=== PATIENT | male | born 1940 | race Caucasian/White ===

== ENCOUNTER 2020-03-04 21:02 | Inpatient (IN) ==
[2020-03-04 22:31] LABS: Basophils % 0.3 %; Hematocrit 42.7 % (37.5-50.1); Hemoglobin 14.3 g/dL (12.9-16.9); Immature Granulocytes % 0.3 % (0-4); Lymphocytes # 0.6 K/mcL (0.6-4.6); Lymphocytes % 15.9 %; Mean Corpuscular HGB Conc 33.5 g/dL (31.6-35.5); Mean Corpuscular Hemoglobin 30.4 pg (28.0-33.3); Mean Corpuscular Volume 90.9 fL (83.0-100.0); Mean Platelet Volume 9.3 fL (9.4-12.4); Monocytes # 0.2 K/mcL (0.0-1.3); Monocytes % 5.8 %; Neutrophils # 2.7 K/mcL (1.6-8.9); Platelet Count 129 K/mcL (140-400); Red Cell Distribution Width 13.3 % (11.5-14.5); Segmented Neutrophils % 77.7 %; White Blood Count 3.5 K/mcL (4.3-11.1)
[2020-03-04 22:40] LABS: Activated Partial Thrombo Time 35.4 Seconds (26.0-36.0)
[2020-03-04 22:41] LABS: INR 1.2; Prothrombin Time 13.1 Seconds (9.4-12.1)
[2020-03-04 22:53] LABS: Albumin/Globulin Ratio 1.5 (1.1-2.2); Bilirubin,Direct 0.2 mg/dL (0.0-0.2); Bilirubin,Indirect 0.5 mg/dL (0.0-1.0); Bilirubin,Total 0.7 mg/dL (0.3-1.0); Calcium 8.5 mg/dL (8.6-10.3); Globulin 2.6 g/dL (2.4-3.5); Magnesium 1.6 mg/dL (1.6-2.6); Phosphorous 2.3 mg/dL (2.7-4.5); Potassium 4.2 mEq/L (3.5-5.1); Total Protein 6.6 g/dL (6.4-8.9)
[2020-03-04 22:54] LABS: Troponin I 0.03 ng/mL (< 0.04)
[2020-03-04] MEDS ORDERED: Dexamethasone 4 MG/ML VIAL IVP ONE (22:59)
[2020-03-05] MEDS ORDERED: Naloxone 0.4 MG/ML INJ IVP PRN (00:04)
[2020-03-05] MEDS: Azithromycin 500 MG in 0.9 % Sodium Chloride 250 ML IVPB SCH (04:12)
[2020-03-05] MEDS: *HR* Enoxaparin 40 MG/0.4 ML SYRINGE SQ SCH (05:24)
[2020-03-05] MEDS ORDERED: Ipratropium 1 PUFF INHALER IH PRN (08:04)
[2020-03-05] MEDS: lisinopriL 5 MG TABLET PO SCH (08:28)
[2020-03-05] MEDS: Loratadine 10 MG TABLET PO SCH (08:28)
[2020-03-05] MEDS: cefTRIAXone 1,000 MG in Water for inj. (sterile) 10 ML IVP SCH (08:28)
[2020-03-05] MEDS: Multivit/Ca/Min/Fe/FA 1 TAB TABLET PO SCH (08:28)
[2020-03-05] MEDS: Aspirin 81 MG TAB.CHEW PO SCH (08:28)
[2020-03-05 09:14] LABS: Basophils % 0.5 %; Hemoglobin 14.7 g/dL (12.9-16.9); Immature Granulocytes % 0.5 % (0-4); Lymphocytes # 0.8 K/mcL (0.6-4.6); Lymphocytes % 34.4 %; Mean Corpuscular HGB Conc 34.2 g/dL (31.6-35.5); Mean Corpuscular Hemoglobin 30.9 pg (28.0-33.3); Mean Corpuscular Volume 90.3 fL (83.0-100.0); Mean Platelet Volume 9.1 fL (9.4-12.4); Monocytes # 0.1 K/mcL (0.0-1.3); Monocytes % 4.1 %; Neutrophils # 1.3 K/mcL (1.6-8.9); Platelet Count 125 K/mcL (140-400); Red Blood Count 4.76 M/mcL (4.19-5.50); Red Cell Distribution Width 13.3 % (11.5-14.5); Segmented Neutrophils % 60.5 %; White Blood Count 2.2 K/mcL (4.3-11.1)
[2020-03-05 09:15] LABS: INR 1.2; Prothrombin Time 13.2 Seconds (9.4-12.1)
[2020-03-05 09:33] LABS: Alanine Aminotransferase 16 Units/L (7-52); Albumin 3.8 g/dL (3.5-5.7); Albumin/Globulin Ratio 1.5 (1.1-2.2); Alkaline Phosphatase 72 Units/L (34-104); Aspartate Amino Transferase 30 Units/L (13-39); BUN/Creatinine Ratio 17 (6-26); Bilirubin,Total 0.6 mg/dL (0.3-1.0); Blood Urea Nitrogen 23 mg/dL (8-23); C-Reactive Protein 85 mg/L (Less than 10); Calcium 8.2 mg/dL (8.6-10.3); Carbon Dioxide 20 mEq/L (23-29); Chloride 100 mEq/L (98-107); Globulin 2.5 g/dL (2.4-3.5); Glucose 118 mg/dL (70-105); Lactate Dehydrogenase 224 Units/L (140-271); Magnesium 1.6 mg/dL (1.6-2.6); Osmolality,Calculated 283 (280-300); Phosphorous 4.4 mg/dL (2.7-4.5); Potassium 3.6 mEq/L (3.5-5.1); Sodium 134 mEq/L (136-145); Total Protein 6.3 g/dL (6.4-8.9); eGFR For African Americans > 60 (> 60); eGFR For Non-African Americans 51 (> 60)
[2020-03-05 13:11] LABS: ABG Base Excess -3 mEq/L (-2 to 3); ABG HCO3 20 mEq/L (21-27); ABG Oxygen Saturation 96 % (95-98); ABG PCO2 29 mmHg (35-45); ABG PH 7.44 pH Units (7.32-7.45); ABG PO2 75 mmHg (85-104); ABG TCO2 21 mEq/L (20-26)
[2020-03-05] MEDS ORDERED: allopurinoL 100 MG TABLET PO SCH (14:39)
[2020-03-05] MEDS ORDERED: Primidone 50 MG TABLET PO SCH (14:39)
[2020-03-05] MEDS: allopurinoL 100 MG TABLET PO SCH (20:22)
[2020-03-05] MEDS: Primidone 50 MG TABLET PO SCH (20:22)
[2020-03-06] MEDS: Azithromycin 500 MG in 0.9 % Sodium Chloride 250 ML IVPB SCH (04:35)
[2020-03-06] MEDS: *HR* Enoxaparin 40 MG/0.4 ML SYRINGE SQ SCH (04:35)
[2020-03-06 05:54] LABS: Hemoglobin 13.9 g/dL (12.9-16.9); Mean Corpuscular Volume 91.6 fL (83.0-100.0)
[2020-03-06 05:55] LABS: Hematocrit 41.5 % (37.5-50.1); Immature Platelets 2.2 % (1.1-6.1); Mean Corpuscular HGB Conc 33.5 g/dL (31.6-35.5); Mean Corpuscular Hemoglobin 30.7 pg (28.0-33.3); Mean Platelet Volume 9.2 fL (9.4-12.4); Red Blood Count 4.53 M/mcL (4.19-5.50); Red Cell Distribution Width 13.4 % (11.5-14.5); White Blood Count 4.6 K/mcL (4.3-11.1)
[2020-03-06 06:17] LABS: BUN/Creatinine Ratio 22 (6-26); Blood Urea Nitrogen 30 mg/dL (8-23); Calcium 8.3 mg/dL (8.6-10.3); Carbon Dioxide 23 mEq/L (23-29); Chloride 101 mEq/L (98-107); Glucose 99 mg/dL (70-105); Magnesium 1.6 mg/dL (1.6-2.6); Osmolality,Calculated 284 (280-300); Phosphorous 2.9 mg/dL (2.7-4.5); Potassium 3.7 mEq/L (3.5-5.1); Sodium 134 mEq/L (136-145); eGFR For African Americans > 60 (> 60); eGFR For Non-African Americans 51 (> 60)
[2020-03-06] MEDS: allopurinoL 100 MG TABLET PO SCH (07:51)
[2020-03-06] MEDS: Loratadine 10 MG TABLET PO SCH (07:51)
[2020-03-06] MEDS: Multivit/Ca/Min/Fe/FA 1 TAB TABLET PO SCH (07:51)
[2020-03-06] MEDS: Aspirin 81 MG TAB.CHEW PO SCH (07:51)
[2020-03-06] MEDS: lisinopriL 5 MG TABLET PO SCH (07:51)
[2020-03-06] MEDS: Primidone 50 MG TABLET PO SCH (07:51)
[2020-03-06] MEDS: cefTRIAXone 1,000 MG in Water for inj. (sterile) 10 ML IVP SCH (07:51)
[2020-03-06] MEDS ORDERED: Ibuprofen 600 MG TABLET PO PRN (14:05)
[2020-03-06] MEDS: Ondansetron 4 MG/2 ML VIAL IVP PRN (14:16)
[2020-03-07] MEDS: Azithromycin 500 MG in 0.9 % Sodium Chloride 250 ML IVPB SCH (03:35)
[2020-03-07 04:30] LABS: Hematocrit 44.3 % (37.5-50.1); Mean Corpuscular HGB Conc 33.9 g/dL (31.6-35.5); Mean Corpuscular Hemoglobin 30.6 pg (28.0-33.3); Mean Corpuscular Volume 90.4 fL (83.0-100.0); Mean Platelet Volume 8.8 fL (9.4-12.4); Platelet Count 139 K/mcL (140-400); Red Cell Distribution Width 13.5 % (11.5-14.5); White Blood Count 3.1 K/mcL (4.3-11.1)
[2020-03-07 04:52] LABS: BUN/Creatinine Ratio 18 (6-26); Blood Urea Nitrogen 24 mg/dL (8-23); C-Reactive Protein 107 mg/L (Less than 10); Calcium 7.8 mg/dL (8.6-10.3); Carbon Dioxide 24 mEq/L (23-29); Chloride 100 mEq/L (98-107); Glucose 90 mg/dL (70-105); Lactate Dehydrogenase 296 Units/L (140-271); Magnesium 1.8 mg/dL (1.6-2.6); Osmolality,Calculated 282 (280-300); Phosphorous 2.6 mg/dL (2.7-4.5); Potassium 3.8 mEq/L (3.5-5.1); Sodium 134 mEq/L (136-145); eGFR For African Americans > 60 (> 60); eGFR For Non-African Americans 54 (> 60)
[2020-03-07 05:10] LABS: Ferritin 771 ng/mL (20-250)
[2020-03-07] MEDS: *HR* Enoxaparin 40 MG/0.4 ML SYRINGE SQ SCH (05:45)
[2020-03-07] MEDS: Aspirin 81 MG TAB.CHEW PO SCH (08:49)
[2020-03-07] MEDS: allopurinoL 100 MG TABLET PO SCH (08:49)
[2020-03-07] MEDS: Loratadine 10 MG TABLET PO SCH (08:49)
[2020-03-07] MEDS: Multivit/Ca/Min/Fe/FA 1 TAB TABLET PO SCH (08:49)
[2020-03-07] MEDS: lisinopriL 5 MG TABLET PO SCH (08:50)
[2020-03-07] MEDS: Primidone 50 MG TABLET PO SCH (08:50)
[2020-03-07] MEDS: cefTRIAXone 1,000 MG in Water for inj. (sterile) 10 ML IVP SCH (08:52)
[2020-03-07] MEDS: Acetaminophen 325 MG TABLET PO PRN ×2 (12:41→19:58)
[2020-03-07 23:17] LABS: Adenovirus Not Detected (Not Detect); Coronavirus 229E Not Detected (Not Detect); Coronavirus HKU1 Not Detected (Not Detect); Coronavirus NL63 Not Detected (Not Detect)
[2020-03-07 23:18] LABS: Coronavirus OC43 Not Detected (Not Detect)
[2020-03-07 23:19] LABS: Bordetella Pertussis Not Detected (Not Detect); Chlamydophila pneumoniae Not Detected (Not Detect); Human Metapneumovirus Not Detected (Not Detect); Human Rhinovirus/Enterovirus Not Detected (Not Detect); Influenza A Subtype 2009 H1 Not Detected (Not Detect); Influenza B Not Detected (Not Detect); Mycoplasma pneumoniae Not Detected (Not Detect); Parainfluenza Virus 1 Not Detected (Not Detect); Parainfluenza Virus 2 Not Detected (Not Detect); Parainfluenza Virus 3 Not Detected (Not Detect); Parainfluenza Virus 4 Not Detected (Not Detect); Respiratory Syncytial Virus Not Detected (Not Detect); SARS-CoV-2 DETECTED (Not Detect)
[2020-03-08 05:50] LABS: Hematocrit 42.9 % (37.5-50.1); Hemoglobin 14.5 g/dL (12.9-16.9); Mean Corpuscular HGB Conc 33.8 g/dL (31.6-35.5); Mean Corpuscular Hemoglobin 30.9 pg (28.0-33.3); Mean Corpuscular Volume 91.5 fL (83.0-100.0); Mean Platelet Volume 9.2 fL (9.4-12.4); Platelet Count 149 K/mcL (140-400); Red Blood Count 4.69 M/mcL (4.19-5.50); Red Cell Distribution Width 13.7 % (11.5-14.5); White Blood Count 3.7 K/mcL (4.3-11.1)
[2020-03-08 06:11] LABS: BUN/Creatinine Ratio 20 (6-26); Blood Urea Nitrogen 27 mg/dL (8-23); Calcium 7.9 mg/dL (8.6-10.3); Carbon Dioxide 23 mEq/L (23-29); Chloride 99 mEq/L (98-107); Glucose 92 mg/dL (70-105); Magnesium 1.8 mg/dL (1.6-2.6); Osmolality,Calculated 277 (280-300); Phosphorous 2.9 mg/dL (2.7-4.5); Potassium 3.6 mEq/L (3.5-5.1); Sodium 131 mEq/L (136-145); eGFR For African Americans > 60 (> 60); eGFR For Non-African Americans 50 (> 60)
[2020-03-08] MEDS: *HR* Enoxaparin 40 MG/0.4 ML SYRINGE SQ SCH (06:37)
[2020-03-08] MEDS: Primidone 50 MG TABLET PO SCH (07:54)
[2020-03-08] MEDS: Loratadine 10 MG TABLET PO SCH (07:54)
[2020-03-08] MEDS: Multivit/Ca/Min/Fe/FA 1 TAB TABLET PO SCH (07:54)
[2020-03-08] MEDS: Aspirin 81 MG TAB.CHEW PO SCH (07:54)
[2020-03-08] MEDS: cefTRIAXone 1,000 MG in Water for inj. (sterile) 10 ML IVP SCH (07:54)
[2020-03-08] MEDS: allopurinoL 100 MG TABLET PO SCH (07:55)
[2020-03-08] MEDS: lisinopriL 5 MG TABLET PO SCH (07:55)
[2020-03-08] MEDS: Ondansetron 4 MG/2 ML VIAL IVP PRN (08:17)
[2020-03-08] MEDS: Acetaminophen 325 MG TABLET PO PRN (08:17)
[2020-03-08] MEDS ORDERED: Azithromycin 250 MG TABLET PO SCH (09:00)
[2020-03-08] MEDS ORDERED: Dexamethasone 4 MG/ML VIAL IVP SCH (11:27)
[2020-03-08] MEDS ORDERED: Dexamethasone 4 MG/ML VIAL IVP ONE (12:30)
[2020-03-08] MEDS ORDERED: 0.9 % Sodium Chloride 250 ML ONE (15:34)
[2020-03-09] MEDS: *HR* Enoxaparin 40 MG/0.4 ML SYRINGE SQ SCH (05:47)
[2020-03-09] MEDS: cefTRIAXone 1,000 MG in Water for inj. (sterile) 10 ML IVP SCH (07:40)
[2020-03-09] MEDS: Multivit/Ca/Min/Fe/FA 1 TAB TABLET PO SCH (07:40)
[2020-03-09] MEDS: Azithromycin 250 MG TABLET PO SCH (07:40)
[2020-03-09] MEDS: Primidone 50 MG TABLET PO SCH (07:40)
[2020-03-09] MEDS: Loratadine 10 MG TABLET PO SCH (07:40)
[2020-03-09] MEDS: Dexamethasone 4 MG/ML VIAL IVP SCH (07:41)
[2020-03-09] MEDS: Aspirin 81 MG TAB.CHEW PO SCH (07:42)
[2020-03-09] MEDS: allopurinoL 100 MG TABLET PO SCH (07:42)
[2020-03-09 08:07] LABS: Hematocrit 41.3 % (37.5-50.1); Hemoglobin 14.3 g/dL (12.9-16.9); Mean Corpuscular HGB Conc 34.6 g/dL (31.6-35.5); Mean Corpuscular Hemoglobin 31.3 pg (28.0-33.3); Mean Corpuscular Volume 90.4 fL (83.0-100.0); Mean Platelet Volume 9.2 fL (9.4-12.4); Platelet Count 196 K/mcL (140-400); Red Blood Count 4.57 M/mcL (4.19-5.50); Red Cell Distribution Width 13.5 % (11.5-14.5); White Blood Count 5.6 K/mcL (4.3-11.1)
[2020-03-09 08:26] LABS: BUN/Creatinine Ratio 24 (6-26); Blood Urea Nitrogen 32 mg/dL (8-23); C-Reactive Protein 145 mg/L (Less than 10); Calcium 8.1 mg/dL (8.6-10.3); Carbon Dioxide 20 mEq/L (23-29); Chloride 100 mEq/L (98-107); Glucose 106 mg/dL (70-105); Lactate Dehydrogenase 375 Units/L (140-271); Magnesium 1.9 mg/dL (1.6-2.6); Osmolality,Calculated 283 (280-300); Potassium 4.1 mEq/L (3.5-5.1); Sodium 133 mEq/L (136-145); eGFR For African Americans > 60 (> 60); eGFR For Non-African Americans 52 (> 60)
[2020-03-09 08:43] LABS: Ferritin 1100 ng/mL (20-250)
[2020-03-09] MEDS ORDERED: 0.9 % Sodium Chloride 250 ML ONE (14:20)
[2020-03-09] MEDS: polyethylene glycoL 3350 17 GM POWD.PACK PO PRN (23:58)
[2020-03-10] MEDS: *HR* Enoxaparin 40 MG/0.4 ML SYRINGE SQ SCH (04:44)
[2020-03-10 06:24] LABS: Basophils % 0.1 %; Hematocrit 41.5 % (37.5-50.1); Hemoglobin 13.9 g/dL (12.9-16.9); Immature Granulocytes % 0.7 % (0-4); Lymphocytes # 0.8 K/mcL (0.6-4.6); Lymphocytes % 8.4 %; Mean Corpuscular HGB Conc 33.5 g/dL (31.6-35.5); Mean Corpuscular Hemoglobin 30.3 pg (28.0-33.3); Mean Corpuscular Volume 90.6 fL (83.0-100.0); Mean Platelet Volume 9.1 fL (9.4-12.4); Monocytes # 0.4 K/mcL (0.0-1.3); Monocytes % 4.2 %; Neutrophils # 7.8 K/mcL (1.6-8.9); Platelet Count 255 K/mcL (140-400); Red Blood Count 4.58 M/mcL (4.19-5.50); Red Cell Distribution Width 13.7 % (11.5-14.5); Segmented Neutrophils % 86.6 %
[2020-03-10 06:43] LABS: BUN/Creatinine Ratio 29 (6-26); Blood Urea Nitrogen 36 mg/dL (8-23); Calcium 8.5 mg/dL (8.6-10.3); Carbon Dioxide 24 mEq/L (23-29); Chloride 101 mEq/L (98-107); Glucose 108 mg/dL (70-105); Osmolality,Calculated 289 (280-300); Potassium 4.2 mEq/L (3.5-5.1); Sodium 135 mEq/L (136-145); eGFR For African Americans > 60 (> 60); eGFR For Non-African Americans 57 (> 60)
[2020-03-10] MEDS: Loratadine 10 MG TABLET PO SCH (07:47)
[2020-03-10] MEDS: Dexamethasone 4 MG/ML VIAL IVP SCH (07:47)
[2020-03-10] MEDS: Azithromycin 250 MG TABLET PO SCH (07:47)
[2020-03-10] MEDS: allopurinoL 100 MG TABLET PO SCH (07:47)
[2020-03-10] MEDS: cefTRIAXone 1,000 MG in Water for inj. (sterile) 10 ML IVP SCH (07:47)
[2020-03-10] MEDS: Primidone 50 MG TABLET PO SCH (07:48)
[2020-03-10] MEDS: Aspirin 81 MG TAB.CHEW PO SCH (07:48)
[2020-03-10] MEDS: Multivit/Ca/Min/Fe/FA 1 TAB TABLET PO SCH (07:48)
[2020-03-10 10:27] LABS: Alanine Aminotransferase 56 Units/L (7-52); Albumin 3.3 g/dL (3.5-5.7); Albumin/Globulin Ratio 1.3 (1.1-2.2); Alkaline Phosphatase 73 Units/L (34-104); Aspartate Amino Transferase 74 Units/L (13-39); Bilirubin,Direct 0.2 mg/dL (0.0-0.2); Bilirubin,Indirect 0.4 mg/dL (0.0-1.0); Bilirubin,Total 0.6 mg/dL (0.3-1.0); Globulin 2.6 g/dL (2.4-3.5); Total Protein 5.9 g/dL (6.4-8.9)
[2020-03-10] MEDS ORDERED: 0.9 % Sodium Chloride 250 ML ONE (11:20)
[2020-03-10] MEDS ORDERED: Furosemide 20 MG/2 ML VIAL IVP ONE (13:44)
[2020-03-10] MEDS ORDERED: Remdesivir 200 MG in 0.9 % Sodium Chloride 210 ML IVPB ONE (17:00)
[2020-03-11 04:57] LABS: Basophils % 0.3 %; Eosinophils % 0.1 %; Hemoglobin 13.3 g/dL (12.9-16.9); Immature Granulocytes % 0.6 % (0-4); Lymphocytes % 10.5 %; Mean Corpuscular HGB Conc 33.3 g/dL (31.6-35.5); Mean Corpuscular Hemoglobin 29.9 pg (28.0-33.3); Mean Corpuscular Volume 89.9 fL (83.0-100.0); Monocytes # 0.4 K/mcL (0.0-1.3); Monocytes % 4.1 %; Platelet Count 269 K/mcL (140-400); Red Blood Count 4.45 M/mcL (4.19-5.50); Red Cell Distribution Width 13.5 % (11.5-14.5); Segmented Neutrophils % 84.4 %; White Blood Count 9.3 K/mcL (4.3-11.1)
[2020-03-11 05:04] LABS: Neutrophils # 7.9 K/mcL (1.6-8.9)
[2020-03-11 05:05] LABS: INR 1.1; Prothrombin Time 12.8 Seconds (9.4-12.1)
[2020-03-11 05:23] LABS: Alanine Aminotransferase 56 Units/L (7-52); Albumin 3.2 g/dL (3.5-5.7); Albumin/Globulin Ratio 1.2 (1.1-2.2); Alkaline Phosphatase 86 Units/L (34-104); Aspartate Amino Transferase 58 Units/L (13-39); BUN/Creatinine Ratio 35 (6-26); Bilirubin,Total 0.6 mg/dL (0.3-1.0); Blood Urea Nitrogen 39 mg/dL (8-23); C-Reactive Protein 59 mg/L (Less than 10); Calcium 8.1 mg/dL (8.6-10.3); Carbon Dioxide 19 mEq/L (23-29); Chloride 104 mEq/L (98-107); Globulin 2.6 g/dL (2.4-3.5); Glucose 95 mg/dL (70-105); Lactate Dehydrogenase 416 Units/L (140-271); Osmolality,Calculated 291 (280-300); Potassium 3.9 mEq/L (3.5-5.1); Sodium 136 mEq/L (136-145); Total Protein 5.8 g/dL (6.4-8.9); eGFR For African Americans > 60 (> 60); eGFR For Non-African Americans > 60 (> 60)
[2020-03-11 05:36] LABS: Ferritin 958 ng/mL (20-250)
[2020-03-11 05:44] LABS: Platelet Estimate Normal (Normal)
[2020-03-11] MEDS: *HR* Enoxaparin 40 MG/0.4 ML SYRINGE SQ SCH (06:03)
[2020-03-11] MEDS ORDERED: Furosemide 40 MG/4 ML VIAL IVP ONE (07:27)
[2020-03-11] MEDS: cefTRIAXone 1,000 MG in Water for inj. (sterile) 10 ML IVP SCH (08:37)
[2020-03-11] MEDS: Dexamethasone 4 MG/ML VIAL IVP SCH (08:37)
[2020-03-11] MEDS: Azithromycin 250 MG TABLET PO SCH (08:38)
[2020-03-11] MEDS: Multivit/Ca/Min/Fe/FA 1 TAB TABLET PO SCH (08:38)
[2020-03-11] MEDS: Aspirin 81 MG TAB.CHEW PO SCH (08:38)
[2020-03-11] MEDS: allopurinoL 100 MG TABLET PO SCH (08:38)
[2020-03-11] MEDS: Primidone 50 MG TABLET PO SCH (08:38)
[2020-03-11] MEDS: Loratadine 10 MG TABLET PO SCH (08:38)
[2020-03-11] MEDS: Acetaminophen 325 MG TABLET PO PRN ×2 (11:37→21:23)
[2020-03-11] MEDS: Remdesivir 100 MG in 0.9 % Sodium Chloride 230 ML IVPB SCH (17:14)
[2020-03-11] MEDS: *HR* Enoxaparin 100 MG/ML SYRINGE SQ SCH (17:15)
[2020-03-12] MEDS: *HR* Enoxaparin 100 MG/ML SYRINGE SQ SCH ×2 (05:22→17:41)
[2020-03-12 06:10] LABS: Hematocrit 43.5 % (37.5-50.1); Hemoglobin 14.8 g/dL (12.9-16.9); Mean Corpuscular Hemoglobin 31.4 pg (28.0-33.3); Mean Corpuscular Volume 92.2 fL (83.0-100.0); Mean Platelet Volume 9.2 fL (9.4-12.4); Platelet Count 270 K/mcL (140-400); Red Blood Count 4.72 M/mcL (4.19-5.50); Red Cell Distribution Width 13.5 % (11.5-14.5); White Blood Count 10.5 K/mcL (4.3-11.1)
[2020-03-12 06:20] LABS: INR 1.2; Prothrombin Time 14.1 Seconds (9.4-12.1)
[2020-03-12 06:31] LABS: Alanine Aminotransferase 53 Units/L (7-52); Albumin 3.4 g/dL (3.5-5.7); Albumin/Globulin Ratio 1.3 (1.1-2.2); Alkaline Phosphatase 133 Units/L (34-104); Aspartate Amino Transferase 49 Units/L (13-39); BUN/Creatinine Ratio 33 (6-26); Bilirubin,Total 0.6 mg/dL (0.3-1.0); Blood Urea Nitrogen 41 mg/dL (8-23); Calcium 8.4 mg/dL (8.6-10.3); Carbon Dioxide 22 mEq/L (23-29); Chloride 103 mEq/L (98-107); Globulin 2.7 g/dL (2.4-3.5); Glucose 82 mg/dL (70-105); Osmolality,Calculated 291 (280-300); Potassium 3.9 mEq/L (3.5-5.1); Sodium 136 mEq/L (136-145); Total Protein 6.1 g/dL (6.4-8.9); eGFR For African Americans > 60 (> 60); eGFR For Non-African Americans 56 (> 60)
[2020-03-12] MEDS: Multivit/Ca/Min/Fe/FA 1 TAB TABLET PO SCH (08:47)
[2020-03-12] MEDS: Loratadine 10 MG TABLET PO SCH (08:47)
[2020-03-12] MEDS: Aspirin 81 MG TAB.CHEW PO SCH (08:47)
[2020-03-12] MEDS: Primidone 50 MG TABLET PO SCH (08:47)
[2020-03-12] MEDS: Dexamethasone 4 MG/ML VIAL IVP SCH (08:48)
[2020-03-12] MEDS: allopurinoL 100 MG TABLET PO SCH (08:48)
[2020-03-12] MEDS: Furosemide 20 MG/2 ML VIAL IVP SCH (08:48)
[2020-03-12] MEDS: Acetaminophen 325 MG TABLET PO PRN ×2 (14:35→20:55)
[2020-03-12] MEDS: Remdesivir 100 MG in 0.9 % Sodium Chloride 230 ML IVPB SCH (16:58)
[2020-03-12] MEDS: polyethylene glycoL 3350 17 GM POWD.PACK PO PRN (20:55)
[2020-03-13 02:36] LABS: Basophils % 0.3 %; Eosinophils % 0.3 %; Hematocrit 46.3 % (37.5-50.1); Hemoglobin 15.7 g/dL (12.9-16.9); Immature Granulocytes % 1.1 % (0-4); Lymphocytes # 0.9 K/mcL (0.6-4.6); Lymphocytes % 7.8 %; Mean Corpuscular HGB Conc 33.9 g/dL (31.6-35.5); Mean Corpuscular Hemoglobin 31.3 pg (28.0-33.3); Mean Corpuscular Volume 92.2 fL (83.0-100.0); Mean Platelet Volume 8.8 fL (9.4-12.4); Monocytes # 0.2 K/mcL (0.0-1.3); Monocytes % 1.6 %; Neutrophils # 9.8 K/mcL (1.6-8.9); Platelet Count 337 K/mcL (140-400); Red Blood Count 5.02 M/mcL (4.19-5.50); Red Cell Distribution Width 13.8 % (11.5-14.5); Segmented Neutrophils % 88.9 %
[2020-03-13 02:40] LABS: INR 1.4; Prothrombin Time 16.5 Seconds (9.4-12.1)
[2020-03-13 02:55] LABS: Alanine Aminotransferase 43 Units/L (7-52); Albumin 3.3 g/dL (3.5-5.7); Albumin/Globulin Ratio 1.1 (1.1-2.2); Alkaline Phosphatase 136 Units/L (34-104); Aspartate Amino Transferase 34 Units/L (13-39); BUN/Creatinine Ratio 32 (6-26); Bilirubin,Total 0.9 mg/dL (0.3-1.0); Blood Urea Nitrogen 39 mg/dL (8-23); Calcium 8.4 mg/dL (8.6-10.3); Carbon Dioxide 23 mEq/L (23-29); Chloride 102 mEq/L (98-107); Glucose 89 mg/dL (70-105); Osmolality,Calculated 291 (280-300); Potassium 3.9 mEq/L (3.5-5.1); Sodium 136 mEq/L (136-145); Total Protein 6.3 g/dL (6.4-8.9); eGFR For African Americans > 60 (> 60); eGFR For Non-African Americans 58 (> 60)
[2020-03-13 02:56] LABS: C-Reactive Protein 228 mg/L (Less than 10); Lactate Dehydrogenase 506 Units/L (140-271)
[2020-03-13 03:15] LABS: Ferritin 854 ng/mL (20-250)
[2020-03-13] MEDS: *HR* Enoxaparin 100 MG/ML SYRINGE SQ SCH ×2 (05:35→17:00)
[2020-03-13] MEDS: Dexamethasone 4 MG/ML VIAL IVP SCH (07:41)
[2020-03-13] MEDS: Aspirin 81 MG TAB.CHEW PO SCH (07:42)
[2020-03-13] MEDS: Furosemide 20 MG/2 ML VIAL IVP SCH ×3 (07:42→20:42)
[2020-03-13] MEDS: Multivit/Ca/Min/Fe/FA 1 TAB TABLET PO SCH (07:42)
[2020-03-13] MEDS: Primidone 50 MG TABLET PO SCH (07:42)
[2020-03-13] MEDS: Loratadine 10 MG TABLET PO SCH (07:42)
[2020-03-13] MEDS: allopurinoL 100 MG TABLET PO SCH (07:42)
[2020-03-13] MEDS: Acetaminophen 325 MG TABLET PO PRN ×2 (08:30→20:44)
[2020-03-13] MEDS: levoFLOXacin 500 MG TABLET PO SCH (10:21)
[2020-03-13] MEDS: Famotidine 20 MG TABLET PO SCH ×2 (10:21→20:42)
[2020-03-13] MEDS: Remdesivir 100 MG in 0.9 % Sodium Chloride 230 ML IVPB SCH (17:00)
[2020-03-13] MEDS ORDERED: MOM Conc 10 ML UD.LIQ PO ONE (21:04)
[2020-03-14 05:39] LABS: Basophils # 0.1 K/mcL (0.0-0.2); Basophils % 0.3 %; Eosinophils # 0.1 K/mcL (0.0-0.6); Eosinophils % 0.5 %; Hematocrit 49.6 % (37.5-50.1); Hemoglobin 16.5 g/dL (12.9-16.9); Immature Granulocytes % 0.9 % (0-4); Lymphocytes # 1.1 K/mcL (0.6-4.6); Lymphocytes % 6.2 %; Mean Corpuscular HGB Conc 33.3 g/dL (31.6-35.5); Mean Corpuscular Hemoglobin 31.1 pg (28.0-33.3); Mean Corpuscular Volume 93.4 fL (83.0-100.0); Mean Platelet Volume 9.1 fL (9.4-12.4); Monocytes # 0.3 K/mcL (0.0-1.3); Monocytes % 1.7 %; Platelet Count 405 K/mcL (140-400); Red Blood Count 5.31 M/mcL (4.19-5.50); Red Cell Distribution Width 14.1 % (11.5-14.5); Segmented Neutrophils % 90.4 %
[2020-03-14 05:40] LABS: Neutrophils # 15.6 K/mcL (1.6-8.9); White Blood Count 17.2 K/mcL (4.3-11.1)
[2020-03-14 05:46] LABS: INR 1.6; Prothrombin Time 17.8 Seconds (9.4-12.1)
[2020-03-14 06:07] LABS: Alanine Aminotransferase 35 Units/L (7-52); Albumin 3.7 g/dL (3.5-5.7); Albumin/Globulin Ratio 1.1 (1.1-2.2); Alkaline Phosphatase 175 Units/L (34-104); Aspartate Amino Transferase 46 Units/L (13-39); BUN/Creatinine Ratio 29 (6-26); Bilirubin,Total 0.9 mg/dL (0.3-1.0); Blood Urea Nitrogen 38 mg/dL (8-23); Calcium 8.9 mg/dL (8.6-10.3); Carbon Dioxide 20 mEq/L (23-29); Chloride 99 mEq/L (98-107); Globulin 3.3 g/dL (2.4-3.5); Glucose 80 mg/dL (70-105); Osmolality,Calculated 290 (280-300); Potassium 3.8 mEq/L (3.5-5.1); Sodium 136 mEq/L (136-145); eGFR For African Americans > 60 (> 60); eGFR For Non-African Americans 53 (> 60)
[2020-03-14] MEDS: *HR* Enoxaparin 100 MG/ML SYRINGE SQ SCH ×2 (06:15→16:59)
[2020-03-14] MEDS: levoFLOXacin 500 MG TABLET PO SCH (08:42)
[2020-03-14] MEDS: Multivit/Ca/Min/Fe/FA 1 TAB TABLET PO SCH (08:42)
[2020-03-14] MEDS: Famotidine 20 MG TABLET PO SCH (08:43)
[2020-03-14] MEDS: Loratadine 10 MG TABLET PO SCH (08:43)
[2020-03-14] MEDS: Primidone 50 MG TABLET PO SCH (08:43)
[2020-03-14] MEDS: allopurinoL 100 MG TABLET PO SCH (08:43)
[2020-03-14] MEDS: Aspirin 81 MG TAB.CHEW PO SCH (08:44)
[2020-03-14] MEDS: Dexamethasone 4 MG/ML VIAL IVP SCH (08:44)
[2020-03-14] MEDS: Furosemide 20 MG/2 ML VIAL IVP SCH ×2 (08:46→19:59)
[2020-03-14] MEDS: Acetaminophen 325 MG TABLET PO PRN (08:52)
[2020-03-14] MEDS ORDERED: Bisacodyl 10 MG RECTAL SUPPOSITORY RC ONE (12:00)
[2020-03-14] MEDS: Remdesivir 100 MG in 0.9 % Sodium Chloride 230 ML IVPB SCH (16:58)
[2020-03-15] MEDS: Acetaminophen 325 MG TABLET PO PRN ×2 (00:49→00:54)
[2020-03-15] MEDS: *HR* Enoxaparin 100 MG/ML SYRINGE SQ SCH ×2 (06:12→17:01)
[2020-03-15] MEDS: Aspirin 81 MG TAB.CHEW PO SCH (08:33)
[2020-03-15] MEDS: levoFLOXacin 750 MG TABLET PO SCH (08:33)
[2020-03-15] MEDS: Famotidine 20 MG TABLET PO SCH (08:33)
[2020-03-15] MEDS: Furosemide 20 MG/2 ML VIAL IVP SCH (08:34)
[2020-03-15] MEDS: Dexamethasone 4 MG/ML VIAL IVP SCH (08:34)
[2020-03-15] MEDS: Loratadine 10 MG TABLET PO SCH (08:34)
[2020-03-15] MEDS: Multivit/Ca/Min/Fe/FA 1 TAB TABLET PO SCH (08:34)
[2020-03-15] MEDS: polyethylene glycoL 3350 17 GM POWD.PACK PO SCH (08:35)
[2020-03-15] MEDS: allopurinoL 100 MG TABLET PO SCH (08:35)
[2020-03-15] MEDS: Primidone 50 MG TABLET PO SCH (08:35)
[2020-03-15 09:45] LABS: INR 1.5; Prothrombin Time 17.2 Seconds (9.4-12.1)
[2020-03-15 09:47] LABS: Basophils % 0.2 %; Eosinophils # 0.1 K/mcL (0.0-0.6); Eosinophils % 0.7 %; Hematocrit 46.5 % (37.5-50.1); Hemoglobin 15.9 g/dL (12.9-16.9); Immature Granulocytes % 1.1 % (0-4); Lymphocytes # 0.9 K/mcL (0.6-4.6); Lymphocytes % 6.3 %; Mean Corpuscular HGB Conc 34.2 g/dL (31.6-35.5); Mean Corpuscular Hemoglobin 31.1 pg (28.0-33.3); Mean Corpuscular Volume 90.8 fL (83.0-100.0); Mean Platelet Volume 8.9 fL (9.4-12.4); Monocytes # 0.2 K/mcL (0.0-1.3); Monocytes % 1.5 %; Neutrophils # 12.9 K/mcL (1.6-8.9); Platelet Count 426 K/mcL (140-400); Red Blood Count 5.12 M/mcL (4.19-5.50); Segmented Neutrophils % 90.2 %; White Blood Count 14.3 K/mcL (4.3-11.1)
[2020-03-15 10:18] LABS: Albumin 3.3 g/dL (3.5-5.7); Bilirubin,Total 0.8 mg/dL (0.3-1.0); Calcium 8.9 mg/dL (8.6-10.3); Globulin 3.3 g/dL (2.4-3.5); Potassium 3.8 mEq/L (3.5-5.1); Total Protein 6.6 g/dL (6.4-8.9)
[2020-03-15] MEDS ORDERED: *HR* Metoprolol 5 MG/5 ML VIAL IVP ONE (10:59)
[2020-03-16] MEDS: *HR* Enoxaparin 100 MG/ML SYRINGE SQ SCH (05:10)
[2020-03-16 07:18] LABS: Basophils % 0.2 %; Eosinophils # 0.1 K/mcL (0.0-0.6); Eosinophils % 0.4 %; Hematocrit 47.1 % (37.5-50.1); Hemoglobin 15.7 g/dL (12.9-16.9); Immature Granulocytes % 1.2 % (0-4); Lymphocytes % 7.6 %; Mean Corpuscular HGB Conc 33.3 g/dL (31.6-35.5); Mean Corpuscular Hemoglobin 31.3 pg (28.0-33.3); Mean Platelet Volume 9.3 fL (9.4-12.4); Monocytes # 0.2 K/mcL (0.0-1.3); Monocytes % 1.6 %; Neutrophils # 11.7 K/mcL (1.6-8.9); Platelet Count 416 K/mcL (140-400); Red Blood Count 5.01 M/mcL (4.19-5.50); Red Cell Distribution Width 14.2 % (11.5-14.5); White Blood Count 13.1 K/mcL (4.3-11.1)
[2020-03-16 07:23] LABS: INR 1.6
[2020-03-16 07:42] LABS: Alanine Aminotransferase 31 Units/L (7-52); Albumin 3.4 g/dL (3.5-5.7); Albumin/Globulin Ratio 1.1 (1.1-2.2); Alkaline Phosphatase 115 Units/L (34-104); Aspartate Amino Transferase 42 Units/L (13-39); BUN/Creatinine Ratio 36 (6-26); Bilirubin,Total 0.8 mg/dL (0.3-1.0); Blood Urea Nitrogen 48 mg/dL (8-23); Calcium 9.1 mg/dL (8.6-10.3); Carbon Dioxide 20 mEq/L (23-29); Chloride 100 mEq/L (98-107); Glucose 78 mg/dL (70-105); Osmolality,Calculated 287 (280-300); Potassium 4.4 mEq/L (3.5-5.1); Sodium 133 mEq/L (136-145); Total Protein 6.4 g/dL (6.4-8.9); eGFR For African Americans > 60 (> 60); eGFR For Non-African Americans 53 (> 60)
[2020-03-16] MEDS: Multivit/Ca/Min/Fe/FA 1 TAB TABLET PO SCH (09:18)
[2020-03-16] MEDS: Aspirin 81 MG TAB.CHEW PO SCH (09:19)
[2020-03-16] MEDS: Loratadine 10 MG TABLET PO SCH (09:19)
[2020-03-16] MEDS: polyethylene glycoL 3350 17 GM POWD.PACK PO SCH (09:19)
[2020-03-16] MEDS: allopurinoL 100 MG TABLET PO SCH (09:19)
[2020-03-16] MEDS: Primidone 50 MG TABLET PO SCH (09:19)
[2020-03-16] MEDS: Famotidine 20 MG TABLET PO SCH (09:19)
[2020-03-16] MEDS: levoFLOXacin 750 MG TABLET PO SCH (09:19)
[2020-03-16] MEDS: Dexamethasone 4 MG/ML VIAL IVP SCH ×2 (09:20→19:45)
[2020-03-16] MEDS: Furosemide 20 MG/2 ML VIAL IVP SCH (16:28)
[2020-03-16] MEDS: Acetaminophen 325 MG TABLET PO PRN (16:57)
[2020-03-17] MEDS: Loratadine 10 MG TABLET PO SCH (09:34)
[2020-03-17] MEDS: Multivit/Ca/Min/Fe/FA 1 TAB TABLET PO SCH (09:34)
[2020-03-17] MEDS: Primidone 50 MG TABLET PO SCH (09:34)
[2020-03-17] MEDS: Famotidine 20 MG TABLET PO SCH (09:34)
[2020-03-17] MEDS: levoFLOXacin 750 MG TABLET PO SCH (09:34)
[2020-03-17] MEDS: allopurinoL 100 MG TABLET PO SCH (09:34)
[2020-03-17] MEDS: Furosemide 20 MG/2 ML VIAL IVP SCH (09:35)
[2020-03-17] MEDS: Aspirin 81 MG TAB.CHEW PO SCH (09:35)
[2020-03-17] MEDS: polyethylene glycoL 3350 17 GM POWD.PACK PO SCH (09:35)
[2020-03-17 10:02] LABS: Hematocrit 49.7 % (37.5-50.1); Mean Corpuscular HGB Conc 34.2 g/dL (31.6-35.5); Mean Corpuscular Hemoglobin 31.7 pg (28.0-33.3); Mean Corpuscular Volume 92.7 fL (83.0-100.0); Mean Platelet Volume 8.9 fL (9.4-12.4); Platelet Count 495 K/mcL (140-400); Red Blood Count 5.36 M/mcL (4.19-5.50)
[2020-03-17 10:07] LABS: INR 1.3; Prothrombin Time 15.1 Seconds (9.4-12.1)
[2020-03-17] MEDS: Dexamethasone 4 MG/ML VIAL IVP SCH ×2 (10:08→20:23)
[2020-03-17 10:20] LABS: Calcium 9.6 mg/dL (8.6-10.3); Magnesium 2.3 mg/dL (1.6-2.6); Potassium 4.3 mEq/L (3.5-5.1)
[2020-03-17] MEDS ORDERED: *HR* Enoxaparin 40 MG/0.4 ML SYRINGE SQ SCH (14:08)
[2020-03-18] MEDS: polyethylene glycoL 3350 17 GM POWD.PACK PO SCH (10:18)
[2020-03-18] MEDS: levoFLOXacin 750 MG TABLET PO SCH (10:18)
[2020-03-18] MEDS: Famotidine 20 MG TABLET PO SCH (10:19)
[2020-03-18] MEDS: Loratadine 10 MG TABLET PO SCH (10:19)
[2020-03-18] MEDS: Multivit/Ca/Min/Fe/FA 1 TAB TABLET PO SCH (10:19)
[2020-03-18] MEDS: Aspirin 81 MG TAB.CHEW PO SCH (10:19)
[2020-03-18] MEDS: Primidone 50 MG TABLET PO SCH (10:19)
[2020-03-18] MEDS: Dexamethasone 4 MG/ML VIAL IVP SCH ×2 (10:19→22:00)
[2020-03-18] MEDS: allopurinoL 100 MG TABLET PO SCH (10:19)
[2020-03-18] MEDS: Furosemide 20 MG/2 ML VIAL IVP SCH (10:20)
[2020-03-18] MEDS ORDERED: *HR* Enoxaparin 40 MG/0.4 ML SYRINGE SQ ONE (16:00)
[2020-03-18] MEDS ORDERED: *HR* Enoxaparin 40 MG/0.4 ML SYRINGE SQ SCH (16:00)
[2020-03-18] MEDS: Acetaminophen 325 MG TABLET PO PRN ×2 (16:35→23:18)
[2020-03-18] MEDS: Benzonatate 100 MG CAPSULE PO PRN (23:18)
[2020-03-19] MEDS: *HR* Enoxaparin 40 MG/0.4 ML SYRINGE SQ SCH (05:28)
[2020-03-19 05:32] LABS: INR 1.3; Prothrombin Time 15.1 Seconds (9.4-12.1)
[2020-03-19 05:44] LABS: BUN/Creatinine Ratio 47 (6-26); Blood Urea Nitrogen 65 mg/dL (8-23); Calcium 9.2 mg/dL (8.6-10.3); Carbon Dioxide 22 mEq/L (23-29); Chloride 95 mEq/L (98-107); Glucose 118 mg/dL (70-105); Magnesium 2.3 mg/dL (1.6-2.6); Osmolality,Calculated 286 (280-300); Potassium 4.8 mEq/L (3.5-5.1); Sodium 128 mEq/L (136-145); eGFR For African Americans > 60 (> 60); eGFR For Non-African Americans 50 (> 60)
[2020-03-19 05:49] LABS: C-Reactive Protein 25 mg/L (Less than 10); Lactate Dehydrogenase 320 Units/L (140-271)
[2020-03-19 06:00] LABS: Ferritin 1123 ng/mL (20-250)
[2020-03-19 06:51] LABS: Hematocrit 47.5 % (37.5-50.1); Hemoglobin 16.2 g/dL (12.9-16.9); Mean Corpuscular HGB Conc 34.1 g/dL (31.6-35.5); Mean Platelet Volume 9.1 fL (9.4-12.4); Platelet Count 398 K/mcL (140-400); Red Blood Count 5.22 M/mcL (4.19-5.50); Red Cell Distribution Width 13.7 % (11.5-14.5); White Blood Count 17.1 K/mcL (4.3-11.1)
[2020-03-19] MEDS: Benzonatate 100 MG CAPSULE PO PRN (09:39)
[2020-03-19] MEDS: Famotidine 20 MG TABLET PO SCH (09:39)
[2020-03-19] MEDS: Furosemide 20 MG/2 ML VIAL IVP SCH (09:39)
[2020-03-19] MEDS: Multivit/Ca/Min/Fe/FA 1 TAB TABLET PO SCH (09:40)
[2020-03-19] MEDS: polyethylene glycoL 3350 17 GM POWD.PACK PO SCH (09:40)
[2020-03-19] MEDS: Aspirin 81 MG TAB.CHEW PO SCH (09:40)
[2020-03-19] MEDS: allopurinoL 100 MG TABLET PO SCH (09:40)
[2020-03-19] MEDS: levoFLOXacin 750 MG TABLET PO SCH (09:40)
[2020-03-19] MEDS: Loratadine 10 MG TABLET PO SCH (09:40)
[2020-03-19] MEDS: Primidone 50 MG TABLET PO SCH (09:41)
[2020-03-19] MEDS ORDERED: 0.9 % Sodium Chloride 500 ML IVC ONE (14:43)
[2020-03-20 03:22] LABS: Calcium 8.7 mg/dL (8.6-10.3); Potassium 4.1 mEq/L (3.5-5.1)
[2020-03-20] MEDS: *HR* Enoxaparin 40 MG/0.4 ML SYRINGE SQ SCH (04:56)
[2020-03-20] MEDS ORDERED: 0.9 % Sodium Chloride 1,000 ML IVC SCH (08:45)
[2020-03-20] MEDS: Benzonatate 100 MG CAPSULE PO PRN (09:28)
[2020-03-20] MEDS: Loratadine 10 MG TABLET PO SCH (09:28)
[2020-03-20] MEDS: Multivit/Ca/Min/Fe/FA 1 TAB TABLET PO SCH (09:28)
[2020-03-20] MEDS: Primidone 50 MG TABLET PO SCH (09:29)
[2020-03-20] MEDS: Furosemide 20 MG/2 ML VIAL IVP SCH (09:29)
[2020-03-20] MEDS: allopurinoL 100 MG TABLET PO SCH (09:29)
[2020-03-20] MEDS: Famotidine 20 MG TABLET PO SCH (09:29)
[2020-03-20] MEDS: Ondansetron 4 MG/2 ML VIAL IVP PRN (09:29)
[2020-03-20] MEDS: Aspirin 81 MG TAB.CHEW PO SCH (09:29)
[2020-03-20] MEDS: polyethylene glycoL 3350 17 GM POWD.PACK PO SCH (10:35)
[2020-03-20] MEDS: Acetaminophen 325 MG TABLET PO PRN (10:57)
[2020-03-21] MEDS: *HR* Enoxaparin 40 MG/0.4 ML SYRINGE SQ SCH (04:50)
[2020-03-21 05:50] LABS: Hematocrit 43.9 % (37.5-50.1); INR 1.2; Mean Corpuscular HGB Conc 34.2 g/dL (31.6-35.5); Mean Corpuscular Hemoglobin 31.6 pg (28.0-33.3); Mean Corpuscular Volume 92.4 fL (83.0-100.0); Mean Platelet Volume 8.9 fL (9.4-12.4); Platelet Count 293 K/mcL (140-400); Prothrombin Time 14.3 Seconds (9.4-12.1); Red Blood Count 4.75 M/mcL (4.19-5.50); Red Cell Distribution Width 13.3 % (11.5-14.5); White Blood Count 14.7 K/mcL (4.3-11.1)
[2020-03-21 06:13] LABS: Calcium 8.7 mg/dL (8.6-10.3); Magnesium 2.1 mg/dL (1.6-2.6); Potassium 4.5 mEq/L (3.5-5.1)
[2020-03-21] MEDS: allopurinoL 100 MG TABLET PO SCH (07:32)
[2020-03-21] MEDS: Primidone 50 MG TABLET PO SCH (07:32)
[2020-03-21] MEDS: Famotidine 20 MG TABLET PO SCH (07:32)
[2020-03-21] MEDS: Multivit/Ca/Min/Fe/FA 1 TAB TABLET PO SCH (07:32)
[2020-03-21] MEDS: polyethylene glycoL 3350 17 GM POWD.PACK PO SCH (07:32)
[2020-03-21] MEDS: Loratadine 10 MG TABLET PO SCH (07:33)
[2020-03-21] MEDS: Aspirin 81 MG TAB.CHEW PO SCH (07:33)
[2020-03-21] MEDS: Furosemide 20 MG/2 ML VIAL IVP SCH (07:33)
[2020-03-21] MEDS ORDERED: 0.9 % Sodium Chloride 1,000 ML IVC SCH (11:45)
[2020-03-21] MEDS: Artificial Tears SOLN 15 ML BOTTLE BOTH EYES SCH (20:00)
[2020-03-22] MEDS ORDERED: Dexmedetomidine HCl 400 MCG/100 ML MLS IVC SCH (03:00)
[2020-03-22 08:05] LABS: Hematocrit 42.7 % (37.5-50.1); Mean Corpuscular HGB Conc 32.8 g/dL (31.6-35.5); Mean Corpuscular Hemoglobin 30.8 pg (28.0-33.3); Mean Corpuscular Volume 93.8 fL (83.0-100.0); Mean Platelet Volume 8.8 fL (9.4-12.4); Platelet Count 258 K/mcL (140-400); Red Blood Count 4.55 M/mcL (4.19-5.50); Red Cell Distribution Width 13.6 % (11.5-14.5); White Blood Count 12.7 K/mcL (4.3-11.1)
[2020-03-22] MEDS: polyethylene glycoL 3350 17 GM POWD.PACK PO SCH (08:06)
[2020-03-22] MEDS: *HR* Enoxaparin 40 MG/0.4 ML SYRINGE SQ SCH (08:06)
[2020-03-22] MEDS: allopurinoL 100 MG TABLET PO SCH (08:09)
[2020-03-22] MEDS: Aspirin 81 MG TAB.CHEW PO SCH (08:09)
[2020-03-22] MEDS: Famotidine 20 MG TABLET PO SCH (08:09)
[2020-03-22] MEDS: Multivit/Ca/Min/Fe/FA 1 TAB TABLET PO SCH (08:09)
[2020-03-22] MEDS: Primidone 50 MG TABLET PO SCH (08:09)
[2020-03-22] MEDS: Loratadine 10 MG TABLET PO SCH (08:09)
[2020-03-22 08:25] LABS: BUN/Creatinine Ratio 39 (6-26); Blood Urea Nitrogen 42 mg/dL (8-23); Calcium 8.5 mg/dL (8.6-10.3); Carbon Dioxide 22 mEq/L (23-29); Chloride 101 mEq/L (98-107); Glucose 79 mg/dL (70-105); Osmolality,Calculated 281 (280-300); Potassium 4.3 mEq/L (3.5-5.1); Sodium 131 mEq/L (136-145); eGFR For African Americans > 60 (> 60); eGFR For Non-African Americans > 60 (> 60)
[2020-03-22] MEDS: Artificial Tears SOLN 15 ML BOTTLE BOTH EYES SCH ×4 (08:30→21:01)
[2020-03-22] MEDS ORDERED: Ringers Solution, Lactated 1,000 ML IVC ONE (11:15)
[2020-03-22] MEDS ORDERED: *HR* LORazepam 2 MG/ML VIAL IVP ONE (22:55)
[2020-03-23 05:26] LABS: Hematocrit 42.5 % (37.5-50.1); Hemoglobin 14.1 g/dL (12.9-16.9); Mean Corpuscular HGB Conc 33.2 g/dL (31.6-35.5); Mean Corpuscular Volume 93.4 fL (83.0-100.0); Mean Platelet Volume 8.7 fL (9.4-12.4); Platelet Count 232 K/mcL (140-400); Red Blood Count 4.55 M/mcL (4.19-5.50); Red Cell Distribution Width 13.7 % (11.5-14.5); White Blood Count 12.3 K/mcL (4.3-11.1)
[2020-03-23 05:31] LABS: INR 1.4; Prothrombin Time 15.6 Seconds (9.4-12.1)
[2020-03-23 06:00] LABS: BUN/Creatinine Ratio 32 (6-26); Blood Urea Nitrogen 30 mg/dL (8-23); Calcium 8.5 mg/dL (8.6-10.3); Carbon Dioxide 24 mEq/L (23-29); Chloride 101 mEq/L (98-107); Glucose 85 mg/dL (70-105); Magnesium 1.9 mg/dL (1.6-2.6); Osmolality,Calculated 283 (280-300); Potassium 4.2 mEq/L (3.5-5.1); Sodium 134 mEq/L (136-145); eGFR For African Americans > 60 (> 60); eGFR For Non-African Americans > 60 (> 60)
[2020-03-23] MEDS: *HR* Enoxaparin 40 MG/0.4 ML SYRINGE SQ SCH (06:48)
[2020-03-23] MEDS: Artificial Tears SOLN 15 ML BOTTLE BOTH EYES SCH ×4 (08:11→19:43)
[2020-03-23] MEDS: Multivit/Ca/Min/Fe/FA 1 TAB TABLET PO SCH (08:11)
[2020-03-23] MEDS: allopurinoL 100 MG TABLET PO SCH (08:11)
[2020-03-23] MEDS: polyethylene glycoL 3350 17 GM POWD.PACK PO SCH (08:11)
[2020-03-23] MEDS: Famotidine 20 MG TABLET PO SCH (08:11)
[2020-03-23] MEDS: Aspirin 81 MG TAB.CHEW PO SCH (08:11)
[2020-03-23] MEDS: Loratadine 10 MG TABLET PO SCH (08:11)
[2020-03-23] MEDS: Primidone 50 MG TABLET PO SCH (08:11)
[2020-03-23] MEDS: Furosemide 20 MG/2 ML VIAL IVP SCH ×2 (11:59→19:42)
[2020-03-24] MEDS: *HR* Enoxaparin 40 MG/0.4 ML SYRINGE SQ SCH (05:52)
[2020-03-24] MEDS: allopurinoL 100 MG TABLET PO SCH (08:29)
[2020-03-24] MEDS: Famotidine 20 MG TABLET PO SCH (08:29)
[2020-03-24] MEDS: Loratadine 10 MG TABLET PO SCH (08:29)
[2020-03-24] MEDS: Aspirin 81 MG TAB.CHEW PO SCH (08:29)
[2020-03-24] MEDS: Primidone 50 MG TABLET PO SCH (08:29)
[2020-03-24] MEDS: polyethylene glycoL 3350 17 GM POWD.PACK PO SCH (08:29)
[2020-03-24] MEDS: Furosemide 20 MG/2 ML VIAL IVP SCH ×2 (08:29→20:54)
[2020-03-24] MEDS: Multivit/Ca/Min/Fe/FA 1 TAB TABLET PO SCH (08:29)
[2020-03-24] MEDS: Artificial Tears SOLN 15 ML BOTTLE BOTH EYES SCH ×4 (08:30→20:55)
[2020-03-24 09:48] LABS: Hematocrit 43.8 % (37.5-50.1); Hemoglobin 14.9 g/dL (12.9-16.9); Mean Corpuscular Hemoglobin 31.4 pg (28.0-33.3); Mean Corpuscular Volume 92.4 fL (83.0-100.0); Mean Platelet Volume 8.9 fL (9.4-12.4); Platelet Count 266 K/mcL (140-400); Red Blood Count 4.74 M/mcL (4.19-5.50); Red Cell Distribution Width 13.8 % (11.5-14.5); White Blood Count 13.4 K/mcL (4.3-11.1)
[2020-03-24 10:04] LABS: BUN/Creatinine Ratio 31 (6-26); Blood Urea Nitrogen 32 mg/dL (8-23); Calcium 8.7 mg/dL (8.6-10.3); Carbon Dioxide 19 mEq/L (23-29); Chloride 100 mEq/L (98-107); Glucose 87 mg/dL (70-105); Osmolality,Calculated 282 (280-300); Potassium 4.2 mEq/L (3.5-5.1); Sodium 133 mEq/L (136-145); eGFR For African Americans > 60 (> 60); eGFR For Non-African Americans > 60 (> 60)
[2020-03-24] MEDS: GuaiFENesin/Dextromethorphan TABLET PO SCH (20:55)
[2020-03-25] MEDS: Acetaminophen 325 MG TABLET PO PRN ×2 (05:08→20:09)
[2020-03-25] MEDS: *HR* Enoxaparin 40 MG/0.4 ML SYRINGE SQ SCH (05:08)
[2020-03-25 06:42] LABS: Hematocrit 41.3 % (37.5-50.1); Hemoglobin 13.9 g/dL (12.9-16.9); Mean Corpuscular HGB Conc 33.7 g/dL (31.6-35.5); Mean Corpuscular Hemoglobin 30.5 pg (28.0-33.3); Mean Corpuscular Volume 90.8 fL (83.0-100.0); Mean Platelet Volume 8.9 fL (9.4-12.4); Platelet Count 254 K/mcL (140-400); Red Blood Count 4.55 M/mcL (4.19-5.50); Red Cell Distribution Width 13.8 % (11.5-14.5); White Blood Count 11.7 K/mcL (4.3-11.1)
[2020-03-25 07:00] LABS: BUN/Creatinine Ratio 30 (6-26); Blood Urea Nitrogen 34 mg/dL (8-23); Calcium 8.5 mg/dL (8.6-10.3); Carbon Dioxide 19 mEq/L (23-29); Chloride 98 mEq/L (98-107); Glucose 84 mg/dL (70-105); Magnesium 1.8 mg/dL (1.6-2.6); Osmolality,Calculated 283 (280-300); Potassium 3.7 mEq/L (3.5-5.1); Sodium 133 mEq/L (136-145); eGFR For African Americans > 60 (> 60); eGFR For Non-African Americans > 60 (> 60)
[2020-03-25] MEDS: allopurinoL 100 MG TABLET PO SCH (09:04)
[2020-03-25] MEDS: Multivit/Ca/Min/Fe/FA 1 TAB TABLET PO SCH (09:04)
[2020-03-25] MEDS: Furosemide 20 MG/2 ML VIAL IVP SCH (09:04)
[2020-03-25] MEDS: GuaiFENesin/Dextromethorphan TABLET PO SCH (09:04)
[2020-03-25] MEDS: Aspirin 81 MG TAB.CHEW PO SCH (09:04)
[2020-03-25] MEDS: Primidone 50 MG TABLET PO SCH (09:04)
[2020-03-25] MEDS: Loratadine 10 MG TABLET PO SCH (09:04)
[2020-03-25] MEDS: Artificial Tears SOLN 15 ML BOTTLE BOTH EYES SCH ×4 (09:04→20:08)
[2020-03-25] MEDS: Famotidine 20 MG TABLET PO SCH (09:04)
[2020-03-25] MEDS: polyethylene glycoL 3350 17 GM POWD.PACK PO SCH (09:05)
[2020-03-25] MEDS ORDERED: Benzonatate 100 MG CAPSULE PO PRN (19:51)
[2020-03-26 05:31] LABS: Hematocrit 44.6 % (37.5-50.1); Hemoglobin 15.1 g/dL (12.9-16.9); Mean Corpuscular HGB Conc 33.9 g/dL (31.6-35.5); Mean Corpuscular Hemoglobin 31.7 pg (28.0-33.3); Mean Corpuscular Volume 93.7 fL (83.0-100.0); Mean Platelet Volume 8.9 fL (9.4-12.4); Platelet Count 240 K/mcL (140-400); Red Blood Count 4.76 M/mcL (4.19-5.50); Red Cell Distribution Width 13.9 % (11.5-14.5); White Blood Count 11.7 K/mcL (4.3-11.1)
[2020-03-26 05:45] LABS: BUN/Creatinine Ratio 31 (6-26); Blood Urea Nitrogen 36 mg/dL (8-23); Calcium 8.7 mg/dL (8.6-10.3); Carbon Dioxide 21 mEq/L (23-29); Chloride 98 mEq/L (98-107); Glucose 54 mg/dL (70-105); Osmolality,Calculated 288 (280-300); Potassium 3.8 mEq/L (3.5-5.1); Sodium 136 mEq/L (136-145); eGFR For African Americans > 60 (> 60); eGFR For Non-African Americans 60 (> 60)
[2020-03-26] MEDS: *HR* Enoxaparin 40 MG/0.4 ML SYRINGE SQ SCH (06:00)
[2020-03-26] MEDS: Famotidine 20 MG TABLET PO SCH (08:16)
[2020-03-26] MEDS: Aspirin 81 MG TAB.CHEW PO SCH (08:16)
[2020-03-26] MEDS: allopurinoL 100 MG TABLET PO SCH (08:16)
[2020-03-26] MEDS: polyethylene glycoL 3350 17 GM POWD.PACK PO SCH (08:16)
[2020-03-26] MEDS: Multivit/Ca/Min/Fe/FA 1 TAB TABLET PO SCH (08:16)
[2020-03-26] MEDS: Loratadine 10 MG TABLET PO SCH (08:16)
[2020-03-26] MEDS: Primidone 50 MG TABLET PO SCH (08:16)
[2020-03-26] MEDS: Artificial Tears SOLN 15 ML BOTTLE BOTH EYES SCH ×4 (08:17→21:01)
[2020-03-26] MEDS: GuaiFENesin/Dextromethorphan TABLET PO SCH ×2 (17:05→20:55)
[2020-03-26] MEDS: Acetaminophen 325 MG TABLET PO PRN (17:05)
[2020-03-27] MEDS: *HR* Enoxaparin 40 MG/0.4 ML SYRINGE SQ SCH (05:57)
[2020-03-27] MEDS: Primidone 50 MG TABLET PO SCH (08:49)
[2020-03-27] MEDS: Famotidine 20 MG TABLET PO SCH (08:49)
[2020-03-27] MEDS: allopurinoL 100 MG TABLET PO SCH (08:50)
[2020-03-27] MEDS: Multivit/Ca/Min/Fe/FA 1 TAB TABLET PO SCH (08:50)
[2020-03-27] MEDS: GuaiFENesin/Dextromethorphan TABLET PO SCH ×2 (08:50→20:26)
[2020-03-27] MEDS: Loratadine 10 MG TABLET PO SCH (08:50)
[2020-03-27] MEDS: polyethylene glycoL 3350 17 GM POWD.PACK PO SCH (08:50)
[2020-03-27] MEDS: Aspirin 81 MG TAB.CHEW PO SCH (08:50)
[2020-03-27] MEDS: Artificial Tears SOLN 15 ML BOTTLE BOTH EYES SCH ×4 (08:51→20:26)
[2020-03-27 10:22] LABS: Hematocrit 45.8 % (37.5-50.1); Hemoglobin 14.9 g/dL (12.9-16.9); Mean Corpuscular HGB Conc 32.5 g/dL (31.6-35.5); Mean Corpuscular Hemoglobin 29.9 pg (28.0-33.3); Mean Platelet Volume 8.7 fL (9.4-12.4); Platelet Count 262 K/mcL (140-400); Red Blood Count 4.98 M/mcL (4.19-5.50); Red Cell Distribution Width 13.8 % (11.5-14.5); White Blood Count 10.3 K/mcL (4.3-11.1)
[2020-03-27 10:42] LABS: BUN/Creatinine Ratio 35 (6-26); Blood Urea Nitrogen 40 mg/dL (8-23); Calcium 8.7 mg/dL (8.6-10.3); Carbon Dioxide 19 mEq/L (23-29); Chloride 98 mEq/L (98-107); Glucose 66 mg/dL (70-105); Osmolality,Calculated 290 (280-300); Potassium 3.7 mEq/L (3.5-5.1); Sodium 136 mEq/L (136-145); eGFR For African Americans > 60 (> 60); eGFR For Non-African Americans > 60 (> 60)
[2020-03-27] MEDS: Furosemide 20 MG TABLET PO SCH (16:28)
[2020-03-27] MEDS: Acetaminophen 325 MG TABLET PO PRN (20:26)
[2020-03-28] MEDS: *HR* Enoxaparin 40 MG/0.4 ML SYRINGE SQ SCH (05:43)
[2020-03-28 07:20] LABS: Hematocrit 45.9 % (37.5-50.1); Hemoglobin 15.2 g/dL (12.9-16.9); Mean Corpuscular HGB Conc 33.1 g/dL (31.6-35.5); Mean Corpuscular Hemoglobin 30.4 pg (28.0-33.3); Mean Corpuscular Volume 91.8 fL (83.0-100.0); Mean Platelet Volume 8.9 fL (9.4-12.4); Platelet Count 270 K/mcL (140-400); Red Cell Distribution Width 13.8 % (11.5-14.5)
[2020-03-28 07:46] LABS: BUN/Creatinine Ratio 34 (6-26); Blood Urea Nitrogen 39 mg/dL (8-23); Calcium 8.9 mg/dL (8.6-10.3); Carbon Dioxide 23 mEq/L (23-29); Chloride 97 mEq/L (98-107); Glucose 65 mg/dL (70-105); Magnesium 2.1 mg/dL (1.6-2.6); Osmolality,Calculated 290 (280-300); Potassium 3.8 mEq/L (3.5-5.1); Sodium 136 mEq/L (136-145); eGFR For African Americans > 60 (> 60); eGFR For Non-African Americans > 60 (> 60)
[2020-03-28] MEDS: Furosemide 20 MG TABLET PO SCH (10:00)
[2020-03-28] MEDS: Primidone 50 MG TABLET PO SCH (10:04)
[2020-03-28] MEDS: Famotidine 20 MG TABLET PO SCH (10:05)
[2020-03-28] MEDS: Loratadine 10 MG TABLET PO SCH (10:05)
[2020-03-28] MEDS: GuaiFENesin/Dextromethorphan TABLET PO SCH ×2 (10:05→21:09)
[2020-03-28] MEDS: Multivit/Ca/Min/Fe/FA 1 TAB TABLET PO SCH (10:05)
[2020-03-28] MEDS: Aspirin 81 MG TAB.CHEW PO SCH (10:05)
[2020-03-28] MEDS: allopurinoL 100 MG TABLET PO SCH (10:05)
[2020-03-28] MEDS: Artificial Tears SOLN 15 ML BOTTLE BOTH EYES SCH ×4 (10:06→21:10)
[2020-03-28] MEDS: polyethylene glycoL 3350 17 GM POWD.PACK PO SCH (10:40)
[2020-03-28] MEDS ORDERED: Chloraseptic Spray 177 ML BOTTLE MM PRN (18:43)
[2020-03-29] MEDS: *HR* Enoxaparin 40 MG/0.4 ML SYRINGE SQ SCH (05:49)
[2020-03-29 06:55] LABS: Hematocrit 48.2 % (37.5-50.1); Hemoglobin 16.1 g/dL (12.9-16.9); Mean Corpuscular HGB Conc 33.4 g/dL (31.6-35.5); Mean Corpuscular Hemoglobin 31.1 pg (28.0-33.3); Mean Corpuscular Volume 93.1 fL (83.0-100.0); Mean Platelet Volume 9.5 fL (9.4-12.4); Platelet Count 224 K/mcL (140-400); Red Blood Count 5.18 M/mcL (4.19-5.50); Red Cell Distribution Width 13.8 % (11.5-14.5)
[2020-03-29 07:15] LABS: BUN/Creatinine Ratio 39 (6-26); Blood Urea Nitrogen 40 mg/dL (8-23); Calcium 8.9 mg/dL (8.6-10.3); Carbon Dioxide 22 mEq/L (23-29); Chloride 100 mEq/L (98-107); Glucose 91 mg/dL (70-105); Osmolality,Calculated 287 (280-300); Sodium 134 mEq/L (136-145); eGFR For African Americans > 60 (> 60); eGFR For Non-African Americans > 60 (> 60)
[2020-03-29] MEDS: Loratadine 10 MG TABLET PO SCH (08:48)
[2020-03-29] MEDS: Multivit/Ca/Min/Fe/FA 1 TAB TABLET PO SCH (08:48)
[2020-03-29] MEDS: Primidone 50 MG TABLET PO SCH (08:48)
[2020-03-29] MEDS: Famotidine 20 MG TABLET PO SCH (08:49)
[2020-03-29] MEDS: allopurinoL 100 MG TABLET PO SCH (08:49)
[2020-03-29] MEDS: Artificial Tears SOLN 15 ML BOTTLE BOTH EYES SCH ×3 (08:49→16:48)
[2020-03-29] MEDS: Aspirin 81 MG TAB.CHEW PO SCH (08:49)
[2020-03-29] MEDS: polyethylene glycoL 3350 17 GM POWD.PACK PO SCH (08:49)
[2020-03-29] MEDS: GuaiFENesin/Dextromethorphan TABLET PO SCH ×2 (08:49→20:28)
[2020-03-30] MEDS: Artificial Tears SOLN 15 ML BOTTLE BOTH EYES SCH ×5 (06:23→22:07)
[2020-03-30] MEDS: *HR* Enoxaparin 40 MG/0.4 ML SYRINGE SQ SCH (06:24)
[2020-03-30] MEDS: Famotidine 20 MG TABLET PO SCH (09:37)
[2020-03-30] MEDS: allopurinoL 100 MG TABLET PO SCH (09:37)
[2020-03-30] MEDS: Loratadine 10 MG TABLET PO SCH (09:37)
[2020-03-30] MEDS: Primidone 50 MG TABLET PO SCH (09:37)
[2020-03-30] MEDS: Multivit/Ca/Min/Fe/FA 1 TAB TABLET PO SCH (09:37)
[2020-03-30] MEDS: GuaiFENesin/Dextromethorphan TABLET PO SCH ×2 (09:37→22:02)
[2020-03-30] MEDS: polyethylene glycoL 3350 17 GM POWD.PACK PO SCH (09:37)
[2020-03-30] MEDS: Aspirin 81 MG TAB.CHEW PO SCH (09:37)
[2020-03-31 04:44] LABS: BUN/Creatinine Ratio 37 (6-26); Blood Urea Nitrogen 35 mg/dL (8-23); Calcium 8.4 mg/dL (8.6-10.3); Carbon Dioxide 21 mEq/L (23-29); Chloride 99 mEq/L (98-107); Glucose 79 mg/dL (70-105); Osmolality,Calculated 285 (280-300); Potassium 3.9 mEq/L (3.5-5.1); Sodium 134 mEq/L (136-145); eGFR For African Americans > 60 (> 60); eGFR For Non-African Americans > 60 (> 60)
[2020-03-31] MEDS: *HR* Enoxaparin 40 MG/0.4 ML SYRINGE SQ SCH (06:29)
[2020-03-31] MEDS: Aspirin 81 MG TAB.CHEW PO SCH (08:53)
[2020-03-31] MEDS: GuaiFENesin/Dextromethorphan TABLET PO SCH ×2 (08:53→20:05)
[2020-03-31] MEDS: Primidone 50 MG TABLET PO SCH (08:53)
[2020-03-31] MEDS: Multivit/Ca/Min/Fe/FA 1 TAB TABLET PO SCH (08:53)
[2020-03-31] MEDS: Famotidine 20 MG TABLET PO SCH (08:53)
[2020-03-31] MEDS: polyethylene glycoL 3350 17 GM POWD.PACK PO SCH (08:53)
[2020-03-31] MEDS: allopurinoL 100 MG TABLET PO SCH (08:53)
[2020-03-31] MEDS: Loratadine 10 MG TABLET PO SCH (08:54)
[2020-03-31] MEDS: Artificial Tears SOLN 15 ML BOTTLE BOTH EYES SCH ×4 (08:54→20:05)
[2020-04-01] MEDS: *HR* Enoxaparin 40 MG/0.4 ML SYRINGE SQ SCH (05:28)
[2020-04-01] MEDS: Aspirin 81 MG TAB.CHEW PO SCH (09:45)
[2020-04-01] MEDS: Loratadine 10 MG TABLET PO SCH (09:45)
[2020-04-01] MEDS: Primidone 50 MG TABLET PO SCH (09:45)
[2020-04-01] MEDS: Multivit/Ca/Min/Fe/FA 1 TAB TABLET PO SCH (09:45)
[2020-04-01] MEDS: GuaiFENesin/Dextromethorphan TABLET PO SCH ×2 (09:45→20:49)
[2020-04-01] MEDS: allopurinoL 100 MG TABLET PO SCH (09:45)
[2020-04-01] MEDS: Artificial Tears SOLN 15 ML BOTTLE BOTH EYES SCH ×4 (09:46→20:49)
[2020-04-01] MEDS: polyethylene glycoL 3350 17 GM POWD.PACK PO SCH (09:46)
[2020-04-01] MEDS: Acetaminophen 325 MG TABLET PO PRN (15:09)
[2020-04-02] MEDS: *HR* Enoxaparin 40 MG/0.4 ML SYRINGE SQ SCH (04:55)
[2020-04-02] MEDS: Multivit/Ca/Min/Fe/FA 1 TAB TABLET PO SCH (07:58)
[2020-04-02] MEDS: allopurinoL 100 MG TABLET PO SCH (07:58)
[2020-04-02] MEDS: Loratadine 10 MG TABLET PO SCH (07:58)
[2020-04-02] MEDS: GuaiFENesin/Dextromethorphan TABLET PO SCH ×2 (07:58→20:28)
[2020-04-02] MEDS: polyethylene glycoL 3350 17 GM POWD.PACK PO SCH (07:58)
[2020-04-02] MEDS: Primidone 50 MG TABLET PO SCH (07:59)
[2020-04-02] MEDS: Aspirin 81 MG TAB.CHEW PO SCH (07:59)
[2020-04-02] MEDS: Artificial Tears SOLN 15 ML BOTTLE BOTH EYES SCH ×4 (07:59→20:28)
[2020-04-03] MEDS: *HR* Enoxaparin 40 MG/0.4 ML SYRINGE SQ SCH (05:10)
[2020-04-03] MEDS: allopurinoL 100 MG TABLET PO SCH (08:02)
[2020-04-03] MEDS: Loratadine 10 MG TABLET PO SCH (08:02)
[2020-04-03] MEDS: Multivit/Ca/Min/Fe/FA 1 TAB TABLET PO SCH (08:02)
[2020-04-03] MEDS: GuaiFENesin/Dextromethorphan TABLET PO SCH ×2 (08:02→20:56)
[2020-04-03] MEDS: Aspirin 81 MG TAB.CHEW PO SCH (08:02)
[2020-04-03] MEDS: Primidone 50 MG TABLET PO SCH (08:02)
[2020-04-03] MEDS: polyethylene glycoL 3350 17 GM POWD.PACK PO SCH (08:03)
[2020-04-03] MEDS: Artificial Tears SOLN 15 ML BOTTLE BOTH EYES SCH ×4 (08:04→20:56)
[2020-04-03 08:31] LABS: BUN/Creatinine Ratio 36 (6-26); Blood Urea Nitrogen 41 mg/dL (8-23); Calcium 9.1 mg/dL (8.6-10.3); Carbon Dioxide 15 mEq/L (23-29); Chloride 103 mEq/L (98-107); Glucose 83 mg/dL (70-105); Osmolality,Calculated 293 (280-300); Potassium 4.7 mEq/L (3.5-5.1); Sodium 137 mEq/L (136-145); eGFR For African Americans > 60 (> 60); eGFR For Non-African Americans > 60 (> 60)
[2020-04-03 10:04] LABS: Basophils # 0.1 K/mcL (0.0-0.2); Basophils % 0.6 %; Eosinophils # 0.4 K/mcL (0.0-0.6); Eosinophils % 3.7 %; Hematocrit 49.4 % (37.5-50.1); Hemoglobin 15.9 g/dL (12.9-16.9); Immature Granulocytes % 1.3 % (0-4); Lymphocytes # 1.3 K/mcL (0.6-4.6); Lymphocytes % 11.2 %; Mean Corpuscular HGB Conc 32.2 g/dL (31.6-35.5); Mean Corpuscular Hemoglobin 30.1 pg (28.0-33.3); Mean Corpuscular Volume 93.6 fL (83.0-100.0); Mean Platelet Volume 9.1 fL (9.4-12.4); Monocytes # 0.9 K/mcL (0.0-1.3); Monocytes % 7.6 %; Neutrophils # 9.1 K/mcL (1.6-8.9); Platelet Count 311 K/mcL (140-400); Red Blood Count 5.28 M/mcL (4.19-5.50); Red Cell Distribution Width 14.4 % (11.5-14.5); Segmented Neutrophils % 75.6 %
[2020-04-03] MEDS: Nystatin SUSP 5 ML UD.LIQ PO SCH ×2 (17:45→20:57)
[2020-04-04 03:39] LABS: Basophils # 0.1 K/mcL (0.0-0.2); Basophils % 0.5 %; Eosinophils % 8.7 %; Hematocrit 47.1 % (37.5-50.1); Hemoglobin 15.4 g/dL (12.9-16.9); Immature Granulocytes % 1.2 % (0-4); Lymphocytes # 1.8 K/mcL (0.6-4.6); Lymphocytes % 16.4 %; Mean Corpuscular HGB Conc 32.7 g/dL (31.6-35.5); Mean Corpuscular Hemoglobin 30.3 pg (28.0-33.3); Mean Corpuscular Volume 92.7 fL (83.0-100.0); Monocytes % 8.9 %; Platelet Count 311 K/mcL (140-400); Red Blood Count 5.08 M/mcL (4.19-5.50); Red Cell Distribution Width 14.5 % (11.5-14.5); Segmented Neutrophils % 64.3 %
[2020-04-04 03:55] LABS: BUN/Creatinine Ratio 36 (6-26); Blood Urea Nitrogen 43 mg/dL (8-23); Calcium 9.1 mg/dL (8.6-10.3); Carbon Dioxide 25 mEq/L (23-29); Chloride 99 mEq/L (98-107); Glucose 105 mg/dL (70-105); Osmolality,Calculated 291 (280-300); Potassium 4.3 mEq/L (3.5-5.1); Sodium 135 mEq/L (136-145); eGFR For African Americans > 60 (> 60); eGFR For Non-African Americans 59 (> 60)
[2020-04-04 04:49] LABS: Bacteria,Urine Few per hpf (None-Few); Bilirubin,Urine Negative (Negative); Blood,Urine Large (Negative); Clarity,Urine Turbid (Clear); Color,Urine Yellow (Yellow); Glucose,Urine (UA) Normal (Normal); Hyaline Casts,Urine Few per lpf (None Seen); Ketones,Urine Negative (Negative); Leukocyte Esterase,Urine Negative (Negative); Mucus,Urine Few per lpf (None-Few); Nitrite,Urine Negative (Negative); Protein,Urine 30 mg/dL (Neg-Trace); RBC,Urine TNTC per hpf (0-3); Specific Gravity,Urine 1.023 (1.010-1.025); Squamous Epithelial Cell,Urine Few per hpf (None-Few); Urobilinogen,Urine Normal (Normal); WBC,Urine 30-50 per hpf (0-3)
[2020-04-04] MEDS: *HR* Enoxaparin 40 MG/0.4 ML SYRINGE SQ SCH (05:29)
[2020-04-04] MEDS ORDERED: Furosemide 40 MG/4 ML VIAL IVP ONE (07:43)
[2020-04-04] MEDS: Primidone 50 MG TABLET PO SCH (09:12)
[2020-04-04] MEDS: Loratadine 10 MG TABLET PO SCH (09:12)
[2020-04-04] MEDS: Aspirin 81 MG TAB.CHEW PO SCH (09:12)
[2020-04-04] MEDS: Nystatin SUSP 5 ML UD.LIQ PO SCH ×4 (09:12→21:31)
[2020-04-04] MEDS: allopurinoL 100 MG TABLET PO SCH (09:12)
[2020-04-04] MEDS: polyethylene glycoL 3350 17 GM POWD.PACK PO SCH (09:12)
[2020-04-04] MEDS: GuaiFENesin/Dextromethorphan TABLET PO SCH ×2 (09:12→21:31)
[2020-04-04] MEDS: Multivit/Ca/Min/Fe/FA 1 TAB TABLET PO SCH (09:12)
[2020-04-04] MEDS: Artificial Tears SOLN 15 ML BOTTLE BOTH EYES SCH ×4 (09:13→21:31)
[2020-04-04] MEDS: Lidocaine Viscous Oral Soln 15 ML SOLUTION MM PRN (16:16)
[2020-04-05 05:43] LABS: Basophils # 0.1 K/mcL (0.0-0.2); Basophils % 0.5 %; Hematocrit 46.9 % (37.5-50.1); Hemoglobin 15.6 g/dL (12.9-16.9); Immature Granulocytes % 1.5 % (0-4); Lymphocytes # 1.7 K/mcL (0.6-4.6); Lymphocytes % 17.5 %; Mean Corpuscular HGB Conc 33.3 g/dL (31.6-35.5); Mean Corpuscular Volume 93.1 fL (83.0-100.0); Mean Platelet Volume 9.3 fL (9.4-12.4); Monocytes # 0.9 K/mcL (0.0-1.3); Monocytes % 9.2 %; Neutrophils # 6.1 K/mcL (1.6-8.9); Platelet Count 315 K/mcL (140-400); Red Blood Count 5.04 M/mcL (4.19-5.50); Red Cell Distribution Width 14.3 % (11.5-14.5); Segmented Neutrophils % 61.3 %; White Blood Count 9.9 K/mcL (4.3-11.1)
[2020-04-05] MEDS: *HR* Enoxaparin 40 MG/0.4 ML SYRINGE SQ SCH (05:49)
[2020-04-05 06:04] LABS: BUN/Creatinine Ratio 34 (6-26); Blood Urea Nitrogen 40 mg/dL (8-23); Calcium 9.2 mg/dL (8.6-10.3); Carbon Dioxide 26 mEq/L (23-29); Chloride 98 mEq/L (98-107); Glucose 95 mg/dL (70-105); Osmolality,Calculated 286 (280-300); Sodium 133 mEq/L (136-145); eGFR For African Americans > 60 (> 60); eGFR For Non-African Americans > 60 (> 60)
[2020-04-05] MEDS: Nystatin SUSP 5 ML UD.LIQ PO SCH ×4 (09:06→20:55)
[2020-04-05] MEDS: Aspirin 81 MG TAB.CHEW PO SCH (09:07)
[2020-04-05] MEDS: Multivit/Ca/Min/Fe/FA 1 TAB TABLET PO SCH (09:07)
[2020-04-05] MEDS: Loratadine 10 MG TABLET PO SCH (09:07)
[2020-04-05] MEDS: Primidone 50 MG TABLET PO SCH (09:07)
[2020-04-05] MEDS: Artificial Tears SOLN 15 ML BOTTLE BOTH EYES SCH ×4 (09:07→20:59)
[2020-04-05] MEDS: GuaiFENesin/Dextromethorphan TABLET PO SCH ×2 (09:07→20:55)
[2020-04-05] MEDS: allopurinoL 100 MG TABLET PO SCH (09:07)
[2020-04-05] MEDS: polyethylene glycoL 3350 17 GM POWD.PACK PO SCH (09:08)
[2020-04-05] MEDS: Lidocaine Viscous Oral Soln 15 ML SOLUTION MM PRN (17:06)
[2020-04-06] MEDS: *HR* Enoxaparin 40 MG/0.4 ML SYRINGE SQ SCH (05:13)
[2020-04-06] MEDS: Primidone 50 MG TABLET PO SCH (09:01)
[2020-04-06] MEDS: Aspirin 81 MG TAB.CHEW PO SCH (09:01)
[2020-04-06] MEDS: allopurinoL 100 MG TABLET PO SCH (09:01)
[2020-04-06] MEDS: GuaiFENesin/Dextromethorphan TABLET PO SCH ×2 (09:01→20:11)
[2020-04-06] MEDS: Nystatin SUSP 5 ML UD.LIQ PO SCH ×4 (09:01→20:12)
[2020-04-06] MEDS: Multivit/Ca/Min/Fe/FA 1 TAB TABLET PO SCH (09:01)
[2020-04-06] MEDS: Loratadine 10 MG TABLET PO SCH (09:01)
[2020-04-06] MEDS: Artificial Tears SOLN 15 ML BOTTLE BOTH EYES SCH ×4 (09:02→20:12)
[2020-04-06] MEDS: polyethylene glycoL 3350 17 GM POWD.PACK PO SCH (09:02)
[2020-04-06 17:23] LABS: Adenovirus Not Detected (Not Detect); Bordetella Pertussis Not Detected (Not Detect); Chlamydophila pneumoniae Not Detected (Not Detect); Coronavirus 229E Not Detected (Not Detect); Coronavirus HKU1 Not Detected (Not Detect); Coronavirus NL63 Not Detected (Not Detect); Coronavirus OC43 Not Detected (Not Detect); Human Metapneumovirus Not Detected (Not Detect); Human Rhinovirus/Enterovirus Not Detected (Not Detect); Influenza A Subtype 2009 H1 Not Detected (Not Detect); Influenza B Not Detected (Not Detect); Mycoplasma pneumoniae Not Detected (Not Detect); Parainfluenza Virus 1 Not Detected (Not Detect); Parainfluenza Virus 2 Not Detected (Not Detect); Parainfluenza Virus 3 Not Detected (Not Detect); Parainfluenza Virus 4 Not Detected (Not Detect); Respiratory Syncytial Virus Not Detected (Not Detect); SARS-CoV-2 Not Detected (Not Detect)
[2020-04-07] MEDS: *HR* Enoxaparin 40 MG/0.4 ML SYRINGE SQ SCH (04:50)
[2020-04-07] MEDS: Nystatin SUSP 5 ML UD.LIQ PO SCH ×4 (09:28→21:27)
[2020-04-07] MEDS: GuaiFENesin/Dextromethorphan TABLET PO SCH ×2 (09:28→21:27)
[2020-04-07] MEDS: Aspirin 81 MG TAB.CHEW PO SCH (09:28)
[2020-04-07] MEDS: Primidone 50 MG TABLET PO SCH (09:28)
[2020-04-07] MEDS: Loratadine 10 MG TABLET PO SCH (09:29)
[2020-04-07] MEDS: polyethylene glycoL 3350 17 GM POWD.PACK PO SCH (09:29)
[2020-04-07] MEDS: allopurinoL 100 MG TABLET PO SCH (09:29)
[2020-04-07] MEDS: Multivit/Ca/Min/Fe/FA 1 TAB TABLET PO SCH (09:30)
[2020-04-07] MEDS: Artificial Tears SOLN 15 ML BOTTLE BOTH EYES SCH ×4 (09:40→21:27)
[2020-04-07] MEDS ORDERED: Furosemide 20 MG/2 ML VIAL IVP ONE (09:52)
[2020-04-07] MEDS ORDERED: hydrOXYzine pamoate 25 MG CAPSULE PO PRN (09:57)
[2020-04-07] MEDS ORDERED: Isovue-370 500 ML BOTTLE IVP ONE (13:22)
[2020-04-08] MEDS: *HR* Enoxaparin 40 MG/0.4 ML SYRINGE SQ SCH (05:53)
[2020-04-08 06:10] LABS: Basophils # 0.1 K/mcL (0.0-0.2); Basophils % 0.6 %; Eosinophils # 0.6 K/mcL (0.0-0.6); Hematocrit 43.1 % (37.5-50.1); Hemoglobin 14.1 g/dL (12.9-16.9); Immature Granulocytes % 1.2 % (0-4); Lymphocytes # 1.7 K/mcL (0.6-4.6); Lymphocytes % 20.3 %; Mean Corpuscular HGB Conc 32.7 g/dL (31.6-35.5); Mean Corpuscular Hemoglobin 30.1 pg (28.0-33.3); Mean Corpuscular Volume 92.1 fL (83.0-100.0); Mean Platelet Volume 8.9 fL (9.4-12.4); Monocytes # 0.7 K/mcL (0.0-1.3); Monocytes % 8.4 %; Neutrophils # 5.2 K/mcL (1.6-8.9); Platelet Count 298 K/mcL (140-400); Red Blood Count 4.68 M/mcL (4.19-5.50); Red Cell Distribution Width 14.4 % (11.5-14.5); Segmented Neutrophils % 62.5 %; White Blood Count 8.3 K/mcL (4.3-11.1)
[2020-04-08 06:31] LABS: BUN/Creatinine Ratio 32 (6-26); Blood Urea Nitrogen 34 mg/dL (8-23); Carbon Dioxide 24 mEq/L (23-29); Chloride 99 mEq/L (98-107); Glucose 96 mg/dL (70-105); Osmolality,Calculated 281 (280-300); Potassium 3.8 mEq/L (3.5-5.1); Sodium 132 mEq/L (136-145); eGFR For African Americans > 60 (> 60); eGFR For Non-African Americans > 60 (> 60)
[2020-04-08] MEDS: Artificial Tears SOLN 15 ML BOTTLE BOTH EYES SCH ×4 (09:08→19:24)
[2020-04-08] MEDS: GuaiFENesin/Dextromethorphan TABLET PO SCH ×2 (09:08→19:25)
[2020-04-08] MEDS: allopurinoL 100 MG TABLET PO SCH (09:08)
[2020-04-08] MEDS: Loratadine 10 MG TABLET PO SCH (09:08)
[2020-04-08] MEDS: Primidone 50 MG TABLET PO SCH (09:08)
[2020-04-08] MEDS: Nystatin SUSP 5 ML UD.LIQ PO SCH ×4 (09:09→19:25)
[2020-04-08] MEDS: Aspirin 81 MG TAB.CHEW PO SCH (09:09)
[2020-04-08] MEDS: Multivit/Ca/Min/Fe/FA 1 TAB TABLET PO SCH (09:09)
[2020-04-08] MEDS: polyethylene glycoL 3350 17 GM POWD.PACK PO SCH (09:09)
[2020-04-08] MEDS ORDERED: Furosemide 20 MG/2 ML VIAL IVP ONE (10:18)
[2020-04-09 03:48] LABS: Basophils % 0.5 %; Eosinophils # 0.5 K/mcL (0.0-0.6); Eosinophils % 5.9 %; Hematocrit 43.3 % (37.5-50.1); Hemoglobin 14.4 g/dL (12.9-16.9); Immature Granulocytes % 0.9 % (0-4); Lymphocytes # 1.7 K/mcL (0.6-4.6); Lymphocytes % 19.9 %; Mean Corpuscular HGB Conc 33.3 g/dL (31.6-35.5); Mean Corpuscular Hemoglobin 31.5 pg (28.0-33.3); Mean Corpuscular Volume 94.7 fL (83.0-100.0); Mean Platelet Volume 9.3 fL (9.4-12.4); Monocytes # 0.7 K/mcL (0.0-1.3); Monocytes % 7.7 %; Neutrophils # 5.6 K/mcL (1.6-8.9); Platelet Count 302 K/mcL (140-400); Red Blood Count 4.57 M/mcL (4.19-5.50); Red Cell Distribution Width 14.4 % (11.5-14.5); Segmented Neutrophils % 65.1 %; White Blood Count 8.6 K/mcL (4.3-11.1)
[2020-04-09 04:07] LABS: BUN/Creatinine Ratio 31 (6-26); Blood Urea Nitrogen 31 mg/dL (8-23); Carbon Dioxide 26 mEq/L (23-29); Chloride 97 mEq/L (98-107); Potassium 3.9 mEq/L (3.5-5.1); Sodium 132 mEq/L (136-145)
[2020-04-09 04:08] LABS: Calcium 8.9 mg/dL (8.6-10.3); Glucose 89 mg/dL (70-105); Osmolality,Calculated 280 (280-300); eGFR For African Americans > 60 (> 60); eGFR For Non-African Americans > 60 (> 60)
[2020-04-09] MEDS: *HR* Enoxaparin 40 MG/0.4 ML SYRINGE SQ SCH (05:00)
[2020-04-09] MEDS ORDERED: *HR* Propofol 200 MG/20 ML VIAL IVP ONE (08:08)
[2020-04-09] MEDS ORDERED: *HR* Succinylcholine 200 MG/10 ML VIAL IVP ONE (08:14)
[2020-04-09] MEDS ORDERED: Ondansetron 4 MG/2 ML VIAL ONE (08:14)
[2020-04-09] MEDS ORDERED: *HR* Rocuronium Bromide 50 MG/5 ML VIAL ONE (08:14)
[2020-04-09] MEDS ORDERED: Lidocaine -MPF 2% 2 ML VIAL ONE (08:14)
[2020-04-09] MEDS ORDERED: Dexamethasone 4 MG/ML VIAL ONE (08:14)
[2020-04-09] MEDS ORDERED: Lidocaine HCL 4 ML Topical Solution (Laryng-O-Jet Kit Sterile Pak) TP ONE (08:14)
[2020-04-09] MEDS ORDERED: *HR* PHENYLEPHRINE 1,000 MCG/10 ML SYRINGE IVP ONE (08:59)
[2020-04-09] MEDS: Lidocaine Viscous Oral Soln 15 ML SOLUTION MM PRN (11:16)
[2020-04-09] MEDS: Artificial Tears SOLN 15 ML BOTTLE BOTH EYES SCH ×4 (11:22→19:42)
[2020-04-09] MEDS: polyethylene glycoL 3350 17 GM POWD.PACK PO SCH (11:22)
[2020-04-09] MEDS: Nystatin SUSP 5 ML UD.LIQ PO SCH ×4 (11:22→19:22)
[2020-04-09] MEDS: allopurinoL 100 MG TABLET PO SCH (11:43)
[2020-04-09] MEDS: Multivit/Ca/Min/Fe/FA 1 TAB TABLET PO SCH (11:43)
[2020-04-09] MEDS: Aspirin 81 MG TAB.CHEW PO SCH (11:43)
[2020-04-09] MEDS: Loratadine 10 MG TABLET PO SCH (11:43)
[2020-04-09] MEDS: Primidone 50 MG TABLET PO SCH (11:44)
[2020-04-09] MEDS: GuaiFENesin/Dextromethorphan TABLET PO SCH ×2 (11:44→19:22)
[2020-04-09 16:08] LABS: Appearance of Body Fluid Slightly Hazy (Clear); Volume of Body Fluid 13 mL
[2020-04-09 16:27] LABS: Appearance of Body Fluid Hazy (Clear); Volume of Body Fluid 15 mL
[2020-04-10] MEDS: *HR* Enoxaparin 40 MG/0.4 ML SYRINGE SQ SCH (04:37)
[2020-04-10] MEDS ORDERED: Benzonatate 100 MG CAPSULE PO PRN (08:23)
[2020-04-10] MEDS: GuaiFENesin/Dextromethorphan TABLET PO SCH ×2 (08:29→19:23)
[2020-04-10] MEDS: Aspirin 81 MG TAB.CHEW PO SCH (08:29)
[2020-04-10] MEDS: allopurinoL 100 MG TABLET PO SCH (08:29)
[2020-04-10] MEDS: Nystatin SUSP 5 ML UD.LIQ PO SCH ×4 (08:29→19:23)
[2020-04-10] MEDS: Multivit/Ca/Min/Fe/FA 1 TAB TABLET PO SCH (08:29)
[2020-04-10] MEDS: Loratadine 10 MG TABLET PO SCH (08:29)
[2020-04-10] MEDS: Primidone 50 MG TABLET PO SCH (08:29)
[2020-04-10] MEDS: polyethylene glycoL 3350 17 GM POWD.PACK PO SCH (08:29)
[2020-04-10] MEDS: Artificial Tears SOLN 15 ML BOTTLE BOTH EYES SCH ×4 (08:29→19:22)
[2020-04-10] MEDS: Lidocaine Viscous Oral Soln 15 ML SOLUTION MM PRN (16:03)
[2020-04-11] MEDS: *HR* Enoxaparin 40 MG/0.4 ML SYRINGE SQ SCH (05:13)
[2020-04-11] MEDS: Loratadine 10 MG TABLET PO SCH (08:14)
[2020-04-11] MEDS: Aspirin 81 MG TAB.CHEW PO SCH (08:14)
[2020-04-11] MEDS: allopurinoL 100 MG TABLET PO SCH (08:14)
[2020-04-11] MEDS: Artificial Tears SOLN 15 ML BOTTLE BOTH EYES SCH ×3 (08:15→16:59)
[2020-04-11] MEDS: polyethylene glycoL 3350 17 GM POWD.PACK PO SCH (08:15)
[2020-04-11] MEDS: Nystatin SUSP 5 ML UD.LIQ PO SCH ×3 (08:15→16:59)
[2020-04-11] MEDS: GuaiFENesin/Dextromethorphan TABLET PO SCH (08:15)
[2020-04-11] MEDS: Multivit/Ca/Min/Fe/FA 1 TAB TABLET PO SCH (08:15)
[2020-04-11] MEDS: Primidone 50 MG TABLET PO SCH (08:15)
[2020-04-11] MEDS ORDERED: Sulfamethoxazole/Trimeth DS 1 EACH TABLET PO SCH (09:00)
[2020-04-11 16:41] LABS: Adenovirus Not Detected (Not Detect); Coronavirus 229E Not Detected (Not Detect); Coronavirus HKU1 Not Detected (Not Detect); Coronavirus NL63 Not Detected (Not Detect); Coronavirus OC43 Not Detected (Not Detect); Human Metapneumovirus Not Detected (Not Detect); Human Rhinovirus/Enterovirus Not Detected (Not Detect); SARS-CoV-2 Not Detected (Not Detect)
[2020-04-11 16:42] LABS: Bordetella Pertussis Not Detected (Not Detect); Chlamydophila pneumoniae Not Detected (Not Detect); Influenza A Subtype 2009 H1 Not Detected (Not Detect); Influenza B Not Detected (Not Detect); Mycoplasma pneumoniae Not Detected (Not Detect); Parainfluenza Virus 1 Not Detected (Not Detect); Parainfluenza Virus 2 Not Detected (Not Detect); Parainfluenza Virus 3 Not Detected (Not Detect); Parainfluenza Virus 4 Not Detected (Not Detect); Respiratory Syncytial Virus Not Detected (Not Detect)
[2020-04-11] MEDS: Ondansetron 4 MG/2 ML VIAL IVP PRN (16:59)
[2020-04-11 19:16] VITALS: BP 94/56
[2020-04-12 22:23] LABS: Influenza A PCR Body Fluid NOT DETECTED; Influenza B PCR Body Fluid NOT DETECTED; RVP Body Fluid Source BAL RLL
[2020-04-13 09:11] LABS: RSV PCR Body Fluid NOT DETECTED
== END 2020-04-11 19:37 | DRG 871 ==
LOC: EMEROOARM 21:02 → 2NENU 21:02 → SUATTDRO 23:43 → 2NENU 03-05 00:20 → SUATTDRO 03-06 17:00 → 2NENU 03-20 14:52 → 2ANU 04-03 13:46
PROVIDERS: ADMIT Family Medicine; ATTEND Internal Medicine

== ENCOUNTER 2020-05-02 15:24 | Observation (INO) ==
[2020-05-02] MEDS ORDERED: Naloxone 0.4 MG/ML INJ IVP PRN (18:53)
[2020-05-02] MEDS ORDERED: Acetaminophen 325 MG TABLET PO PRN (18:53)
[2020-05-02] MEDS ORDERED: Ondansetron ODT 4 MG TAB.RAPDIS SL PRN (18:53)
[2020-05-02] MEDS ORDERED: *HR* LORazepam 0.5 MG TABLET PO ONE ×2 (18:59→20:52)
[2020-05-02 19:45] LABS: Basophils % 0.3 %; Eosinophils # 0.1 K/mcL (0.0-0.6); Eosinophils % 1.1 %; Hematocrit 38.8 % (37.5-50.1); Hemoglobin 12.8 g/dL (12.9-16.9); Immature Granulocytes % 0.4 % (0-4); Lymphocytes # 0.8 K/mcL (0.6-4.6); Lymphocytes % 7.2 %; Mean Corpuscular Hemoglobin 31.1 pg (28.0-33.3); Mean Corpuscular Volume 94.2 fL (83.0-100.0); Mean Platelet Volume 8.9 fL (9.4-12.4); Monocytes # 0.5 K/mcL (0.0-1.3); Monocytes % 4.1 %; Neutrophils # 10.1 K/mcL (1.6-8.9); Platelet Count 235 K/mcL (140-400); Red Blood Count 4.12 M/mcL (4.19-5.50); Segmented Neutrophils % 86.9 %; White Blood Count 11.6 K/mcL (4.3-11.1)
[2020-05-02 19:51] LABS: INR 1.4; Prothrombin Time 15.7 Seconds (9.4-12.1)
[2020-05-02 20:21] LABS: Alanine Aminotransferase 44 Units/L (7-52); Albumin 3.4 g/dL (3.5-5.7); Alkaline Phosphatase 99 Units/L (34-104); Aspartate Amino Transferase 44 Units/L (13-39); BUN/Creatinine Ratio 29 (6-26); Bilirubin,Total 0.9 mg/dL (0.3-1.0); Blood Urea Nitrogen 25 mg/dL (8-23); Calcium 9.2 mg/dL (8.6-10.3); Carbon Dioxide 25 mEq/L (23-29); Chloride 94 mEq/L (98-107); Globulin 3.4 g/dL (2.4-3.5); Glucose 129 mg/dL (70-105); Magnesium 1.6 mg/dL (1.6-2.6); Osmolality,Calculated 280 (280-300); Phosphorous 4.5 mg/dL (2.7-4.5); Potassium 4.2 mEq/L (3.5-5.1); Sodium 132 mEq/L (136-145); Total Protein 6.8 g/dL (6.4-8.9); Troponin I 0.19 ng/mL (< 0.04); eGFR For African Americans > 60 (> 60); eGFR For Non-African Americans > 60 (> 60)
[2020-05-02] MEDS ORDERED: *HR* Heparin 5,000 UNIT/ML VIAL IVP ONE (20:28)
[2020-05-02] MEDS ORDERED: *HR* Heparin 5,000 UNIT/ML VIAL IVP PRN ×2 (20:28)
[2020-05-02] MEDS ORDERED: Heparin 25,000UNIT/250ML 1/2NS 25,000 UNIT/250 ML IV.SOLN IVC SCH (20:30)
[2020-05-02 22:13] LABS: ABG Base Excess 3 mEq/L (-2 to 3); ABG HCO3 26 mEq/L (21-27); ABG Oxygen Saturation 99 % (95-98); ABG PCO2 34 mmHg (35-45); ABG PH 7.48 pH Units (7.32-7.45); ABG PO2 128 mmHg (85-104); ABG TCO2 27 mEq/L (20-26); Blood Gas Pressure Support 14 cm H2O
[2020-05-03] MEDS ORDERED: Perflutren Lipid Microsphere 1.3 ML in 0.9 % Sodium Chloride 8.7 ML IVP PRN (03:12)
[2020-05-03] MEDS: Cefepime HCl 2,000 MG in Water for inj. (sterile) 20 ML IVP SCH ×2 (05:32→18:25)
[2020-05-03 06:20] LABS: Mean Corpuscular Hemoglobin 31.5 pg (28.0-33.3); Mean Corpuscular Volume 95.4 fL (83.0-100.0); Mean Platelet Volume 8.9 fL (9.4-12.4); Platelet Count 204 K/mcL (140-400); Red Blood Count 3.46 M/mcL (4.19-5.50); White Blood Count 8.4 K/mcL (4.3-11.1)
[2020-05-03 06:25] LABS: Hemoglobin 10.9 g/dL (12.9-16.9)
[2020-05-03 06:40] LABS: Alanine Aminotransferase 34 Units/L (7-52); Albumin 2.9 g/dL (3.5-5.7); Alkaline Phosphatase 82 Units/L (34-104); Aspartate Amino Transferase 30 Units/L (13-39); BUN/Creatinine Ratio 29 (6-26); Bilirubin,Total 0.7 mg/dL (0.3-1.0); Blood Urea Nitrogen 27 mg/dL (8-23); Calcium 8.7 mg/dL (8.6-10.3); Carbon Dioxide 26 mEq/L (23-29); Chloride 96 mEq/L (98-107); Glucose 106 mg/dL (70-105); Osmolality,Calculated 278 (280-300); Potassium 3.6 mEq/L (3.5-5.1); Sodium 131 mEq/L (136-145); Total Protein 5.9 g/dL (6.4-8.9); eGFR For African Americans > 60 (> 60); eGFR For Non-African Americans > 60 (> 60)
[2020-05-03] MEDS ORDERED: GuaiFENesin/Dextromethorphan TABLET PO SCH (09:00)
[2020-05-03] MEDS ORDERED: Primidone 50 MG TABLET PO SCH (09:00)
[2020-05-03] MEDS ORDERED: allopurinoL 100 MG TABLET PO SCH (09:00)
[2020-05-03] MEDS ORDERED: Aspirin 81 MG TAB.CHEW PO SCH (09:00)
[2020-05-03] MEDS ORDERED: Budesonide/Formoterol 160/4.5 1 PUFF INH IH SCH (10:00)
[2020-05-03] MEDS ORDERED: Isovue-370 500 ML BOTTLE IVP ONE (11:11)
[2020-05-03 11:49] LABS: ABG Base Excess 2 mEq/L (-2 to 3); ABG HCO3 26 mEq/L (21-27); ABG Oxygen Saturation 97 % (95-98); ABG PCO2 35 mmHg (35-45); ABG PH 7.47 pH Units (7.32-7.45); ABG PO2 82 mmHg (85-104); ABG TCO2 27 mEq/L (20-26)
[2020-05-03 11:56] LABS: Bacteria,Urine Few per hpf (None-Few); Bilirubin,Urine Negative (Negative); Blood,Urine Trace (Negative); Clarity,Urine Clear (Clear); Color,Urine Yellow (Yellow); Glucose,Urine (UA) Normal (Normal); Ketones,Urine 10 mg/dL (Negative); Leukocyte Esterase,Urine Negative (Negative); Mucus,Urine Few per lpf (None-Few); Nitrite,Urine Negative (Negative); PH,Urine 5.5 pH Units (5.0-8.0); Protein,Urine 50 mg/dL (Neg-Trace); RBC,Urine 15-30 per hpf (0-3); Renal Epithelial Cells,Urine Few per hpf (None-Few); Specific Gravity,Urine 1.018 (1.010-1.025); Transitional Epi Cells,Urine Few per hpf (None-Few); Urobilinogen,Urine Normal (Normal)
[2020-05-03] MEDS ORDERED: 0.9 % Sodium Chloride 1,000 ML IVC SCH (13:00)
[2020-05-03] MEDS ORDERED: *HR* Heparin 5,000 UNIT/ML VIAL IVP PRN ×2 (13:02)
[2020-05-03] MEDS ORDERED: Heparin 25,000UNIT/250ML 1/2NS 25,000 UNIT/250 ML IV.SOLN IVC SCH (13:15)
[2020-05-03] MEDS: MethylPREDNISolone 40 MG/ML VIAL IVP SCH ×2 (13:55→18:25)
[2020-05-03] MEDS ORDERED: Loratadine 10 MG TABLET PO SCH (18:00)
[2020-05-03 19:03] VITALS: BP 96/66
== END 2020-05-03 19:28 | disposition short-term general hospital (02) ==
LOC: 2NNU → SUATTDRO 17:44
PROVIDERS: ADMIT Internal Medicine; ATTEND Internal Medicine